=== PATIENT | male | born 1960 | race Caucasian/White ===

== ENCOUNTER 2017-06-30 14:01 | Inpatient (IN) ==
[2017-06-30 14:22] LABS: Basophils % 0.4 %; Eosinophils # 0.3 K/mcL (0.0-0.6); Eosinophils % 3.7 %; Hematocrit 38.2 % (37.5-50.1); Hemoglobin 12.4 g/dL (12.9-16.9); Immature Granulocytes % 0.4 % (0-4); Lymphocytes # 1.3 K/mcL (0.6-4.6); Lymphocytes % 18.4 %; Mean Corpuscular HGB Conc 32.5 g/dL (31.6-35.5); Mean Corpuscular Hemoglobin 26.8 pg (28.0-33.3); Mean Corpuscular Volume 82.5 fL (83.0-100.0); Mean Platelet Volume 10.5 fL (9.4-12.4); Monocytes # 0.4 K/mcL (0.0-1.3); Neutrophils # 5.1 K/mcL (1.6-8.9); Platelet Count 226 K/mcL (140-400); Red Blood Count 4.63 M/mcL (4.19-5.50); Red Cell Distribution Width 13.7 % (11.5-14.5); Segmented Neutrophils % 72.1 %
[2017-06-30 14:35] LABS: Calcium 7.8 mg/dL (8.6-10.3); Carbon Dioxide 28 mEq/L (23-29); Chloride 108 mEq/L (98-107); Potassium 3.7 mEq/L (3.5-5.1); Sodium 139 mEq/L (136-145)
[2017-06-30 14:41] LABS: BUN/Creatinine Ratio 9 (6-26); Blood Urea Nitrogen 12 mg/dL (6-20); Glucose 280 mg/dL (70-105); Osmolality,Calculated 298 (280-300); eGFR For African Americans > 60 (> 60); eGFR For Non-African Americans 59 (> 60)
[2017-06-30] MEDS ORDERED: Aspirin 81 MG TAB.CHEW PO ONE (15:19)
[2017-06-30] MEDS ORDERED: *HR* Enoxaparin 120 MG/0.8 ML SYRINGE SQ STA (15:19)
[2017-06-30] MEDS ORDERED: Furosemide 20 MG/2 ML VIAL IVP ONE ×2 (16:14→18:48)
--- NOTE | 2017-06-30 16:29 | Emergency Department Note ---
Addendum entered and electronically signed by Yuliana Roblero DO 16:47: EKG Sinus rhythm with occasional PVCs and nonspecific T-wave abnormality. [address] interval 128, QRS 93, QTc 442. This ends acute ST segment elevation or ischemia. Compared to previous EKG completed on 08/04/2016 no significant changes noted Original Note: Disposition Clinical Impression: Elevated troponin CHF (congestive heart failure) Qualifiers: Heart failure type: diastolic Heart failure chronicity: acute on chronic Qualified Code(s): I50.33 - Acute on chronic diastolic (congestive) heart failure Disposition: Admitted As Inpatient Condition: Good Time of Disposition: 16:32 General Adult HPI - General Chief complaint: ED Shortness of Breath/Dyspnea Stated complaint: BORA,CHF Time Seen by Provider: 06/30/17 15:00 Source: patient Mode of arrival: ambulatory Limitations: no limitations Nursing Notes Reviewed: Yes Vital Signs Reviewed: Yes - History of Present Illness HPI Narrative: 56-year-old male with significant past medical history of hypertension and hyperglycemia presenting to the emergency department complaining of increased shortness of breath. Patient states the past 4 months has had increasing shortness of breath. He was given an albuterol inhaler by his primary care physician but has had no further workup. Patient states over the past month it has progressively been worse. He is dyspneic on exertion. Patient denies any fevers or recent illnesses. Denies any chest pain, abdominal pain, nausea or vomiting. Patient went to urgent care today and it was completed which showed mild pulmonary edema. He was sent here for further workup. Patient denies any history of CHF. Denies any cardiac history. Pain Scale: 0 - Related Data Home Medications Medication Instructions Recorded Confirmed Amlodipine Besylate 10 mg PO DAILY 01/23/17 06/30/17 Carvedilol [Coreg] 25 mg PO BID 01/23/17 06/30/17 Glimepiride [Amaryl] 2 mg PO 0800 01/23/17 06/30/17 Metformin HCl [Glucophage] 1,000 mg PO BID 01/23/17 06/30/17 Omeprazole [PriLOSEC] 20 mg PO DAILY 01/23/17 06/30/17 Simvastatin [Zocor] 40 mg PO HS 01/23/17 06/30/17 cloNIDine HCl [Clonidine HCl] 0.2 mg PO TID 01/23/17 06/30/17 Albuterol Sulfate [Ventolin Hfa] 2 puff IH Q4H PRN 06/30/17 06/30/17 Empagliflozin [Jardiance] 25 mg PO DAILY 06/30/17 06/30/17 Allergies Allergy/AdvReac Type Severity Reaction Status Date / Time No Known Allergies Allergy Verified 06/30/17 14:06 All systems ED: reviewed and negative except as stated. Constitutional: Denies: fever, chills Cardiovascular: Reports: dyspnea on exertion. Denies: chest pain, palpitations Respiratory: Reports: dyspnea. Denies: cough, wheezes, hemoptysis Gastrointestinal: Denies: abdominal pain, nausea, vomiting Integumentary: Denies: rash Neurological: Denies: weakness, numbness, paresthesias Past Medical History - Past Medical History Attestation: Yes The following information was validated with the patient. Medical history: Reports: diabetes, GERD, hyperlipidemia, hypertension, other Surgical history: Reports: orthopedic, other Psychiatric history: Reports: no psych history - Social History Smoking Status: Never smoker Smokeless Tobacco Status: No Alcohol use: Reports: none Drug use: Reports: none Physical Exam - General Limitations: no limitations General appearance: alert, in no apparent distress - Head Head exam: atraumatic, normocephalic, normal inspection - Eye Eye exam: Present: normal appearance. Absent: scleral icterus, conjunctival injection - ENT ENT exam: mucous membranes moist - Neck Neck exam: Present: normal inspection, full ROM. Absent: tenderness, meningismus - Chest Chest inspection: Present: normal inspection, symmetric chest wall rise. Absent : tenderness, rash - Respiratory Respiratory exam: Present: other (decreased breath sounds bilateral bases). Absent: respiratory distress, wheezes - Cardiovascular Cardiovascular exam: Present: regular rate, normal rhythm, normal heart sounds - Abdominal Exam Abdominal exam: Present: soft, Non-Tender. Absent: distention, guarding, rebound - Extremities Exam Extremities exam: Present: other (bilateral lower extremity swelling, 2+ pitting edema) - Neurological Exam Neurological exam: Present: alert, oriented X3 - Psychiatric Psychiatric exam: Present: normal affect, normal mood - Skin Skin exam: Present: warm, dry, intact Course Course Narrative: 56-year-old male presenting to the emergency department complaining of increased shortness of breath over the past month. Laboratory workup was completed in triage including CBC, BMP, BNP and troponin along with EKG and chest x-ray was completed in urgent care. Chest x-ray shows new nonspecific T- wave abnormalities. Troponin elevated at 0.04. BNP also elevated. We will provide the patient with Lasix, Lovenox and aspirin at this time. We will admit the patient for CHF exacerbation and elevated troponin. I spoke with the hospitalist on-call Dr. Narayan who agrees to accept the patient at this time. Patient is alert and oriented 3 in room 0 vital signs this time. He agrees with this plan. Vital Signs Temperature 97.8 F 06/30/17 14:03 Pulse Rate 72 06/30/17 14:03 Respiratory Rate 16 06/30/17 14:03 Blood Pressure 186/81 06/30/17 14:03 O2 Sat by Pulse Oximetry 96 06/30/17 14:03 Temperature 98.4 F 06/30/17 21:43 Pulse Rate 65 06/30/17 21:43 Respiratory Rate 16 06/30/17 21:43 Blood Pressure 208/114 06/30/17 21:43 O2 Sat by Pulse Oximetry 95 06/30/17 21:43 Oxygen Delivery Oxygen Delivery Room Air Medical Decision Making - Lab Data Result diagrams: 06/30/17 14:14 06/30/17 14:14 Lab Results 06/30/17 06/30/17 06/30/17 Range/Units 14:14 14:14 14:14 WBC 7.1 (4.3-11.1) K/mcL RBC 4.63 (4.19-5.50) M/mcL Hgb 12.4 L (12.9-16.9) g/dL Hct 38.2 (37.5-50.1) % MCV 82.5 L (83.0-100.0) fL MCH 26.8 L (28.0-33.3) pg MCHC 32.5 (31.6-35.5) g/dL RDW 13.7 (11.5-14.5) % Plt Count 226 (140-400) K/mcL MPV 10.5 (9.4-12.4) fL Immature Gran % 0.4 (0-4) % Seg Neutrophils % 72.1 % Lymphocytes % 18.4 % Monocytes % 5.0 % Eosinophils % 3.7 % Basophils % 0.4 % Neutrophils # 5.1 (1.6-8.9) K/mcL Lymphocytes # 1.3 (0.6-4.6) K/mcL Monocytes # 0.4 (0.0-1.3) K/mcL Eosinophils # 0.3 (0.0-0.6) K/mcL Basophils # 0.0 (0.0-0.2) K/mcL D-Dimer (0-500) ng/mLFEU Sodium 139 (136-145) mEq/L Potassium 3.7 (3.5-5.1) mEq/L Chloride 108 H (98-107) mEq/L Carbon Dioxide 28 (23-29) mEq/L BUN 12 (6-20) mg/dL Creatinine 1.27 (0.70-1.30) mg/dL Est GFR ( Amer) > 60 (> 60) Est GFR (Non-Af Amer) 59 L (> 60) BUN/Creatinine Ratio 9 (6-26) Glucose 280 H (70-105) mg/dL Calculated Osmolality 298 (280-300) Calcium 7.8 L (8.6-10.3) mg/dL Troponin I 0.04 H* (< 0.04) ng/mL B-Natriuretic Peptide (Less than 100) pg/mL 06/30/17 06/30/17 Range/Units 14:14 14:14 WBC (4.3-11.1) K/mcL RBC (4.19-5.50) M/mcL Hgb (12.9-16.9) g/dL Hct (37.5-50.1) % MCV (83.0-100.0) fL MCH (28.0-33.3) pg MCHC (31.6-35.5) g/dL RDW (11.5-14.5) % Plt Count (140-400) K/mcL MPV (9.4-12.4) fL Immature Gran % (0-4) % Seg Neutrophils % % Lymphocytes % % Monocytes % % Eosinophils % % Basophils % % Neutrophils # (1.6-8.9) K/mcL Lymphocytes # (0.6-4.6) K/mcL Monocytes # (0.0-1.3) K/mcL Eosinophils # (0.0-0.6) K/mcL Basophils # (0.0-0.2) K/mcL D-Dimer 1169 H (0-500) ng/mLFEU Sodium (136-145) mEq/L Potassium (3.5-5.1) mEq/L Chloride (98-107) mEq/L Carbon Dioxide (23-29) mEq/L BUN (6-20) mg/dL Creatinine (0.70-1.30) mg/dL Est GFR ( Amer) (> 60) Est GFR (Non-Af Amer) (> 60) BUN/Creatinine Ratio (6-26) Glucose (70-105) mg/dL Calculated Osmolality (280-300) Calcium (8.6-10.3) mg/dL Troponin I (< 0.04) ng/mL B-Natriuretic Peptide 247 H (Less than 100) pg/mL Attestation Statement - Attestation Attestation: I examined this patient and my medical decision-making was reviewed with the Resident Physician. I agree with the documented findings, disposition and treatment plan as described except to the extent set forth below. Findings consistent with possible heart failure. Patient refuses left heart catheter previously. We will provide one dose of low molecular weight heparin, admit, elevated cardiac biomarkers, possibly related to underlying heart failure. Critical care performed:35 Time is exclusive of separately billable procedures. Time includes: direct patient care, patient reassessment, coordination of patient care, interpretation of data (laboratory data, radiology data, and respiratory data), review of patient's medical records, medical consultation and documentation of patient care. Procedures included in critical care time:0 Procedures excluded from critical care time: 0
--- NOTE | 2017-06-30 21:01 | Internal Med History&Physical ---
<Ed Patterson P - Last Filed: 06/30/17 23:44> Date of Encounter: 06/30/17 Internal Medicine - H&P: HPI History of present illness: Mr. Borges is a 56 year old male Internal Medicine - H&P: Meds Amlodipine Besylate 10 mg PO DAILY 01/23/17 [History] Carvedilol [Coreg] 25 mg PO BID 01/23/17 [History] Glimepiride [Amaryl] 2 mg PO 0800 01/23/17 [History] Metformin HCl [Glucophage] 1,000 mg PO BID 01/23/17 [History] Omeprazole [PriLOSEC] 20 mg PO DAILY 01/23/17 [History] Simvastatin [Zocor] 40 mg PO HS 01/23/17 [History] cloNIDine HCl [Clonidine HCl] 0.2 mg PO TID 01/23/17 [History] Albuterol Sulfate [Ventolin Hfa] 2 puff IH Q4H PRN 06/30/17 [History] Empagliflozin [Jardiance] 25 mg PO DAILY 06/30/17 [History] 3 Allergy/AdvReac Type Severity Reaction Status Date / Time No Known Allergies Allergy Verified 06/30/17 14:06 All Systems PM: A 10-system review of systems was performed and is negative for pertinent findings except as documented above in the HPI. - Constitutional Vitals: Temp Pulse Resp BP Pulse Ox 98.4 F 65 16 208/114 95 06/30/17 21:43 06/30/17 21:43 06/30/17 21:43 06/30/17 21:43 06/30/17 21:43 Internal Med - H&P Results - Labs CBC & Chem 7: 06/30/17 14:14 06/30/17 14:14 Labs: Cardiac Enzymes 06/30/17 Range/Units 20:31 Troponin I 0.05 H* (< 0.04) ng/mL - Attending Attestation I examined this patient and my medical decision-making was reviewed with the Resident Physician. I agree with the documented findings, disposition and treatment plan as described except to the extent set forth below. I have personally examined this patient before midnight. I agree with the history and physical along with the physical findings and plan recommended by resident physician. This patient needs a medication reconsultation by morning team and possible cardiology evaluation. <Man Wong - Last Filed: 06/30/17 23:47> Date of Encounter: 06/30/17 Time of Encounter: 08:20 Assessment and Plan (1) CHF (congestive heart failure) Current visit: Yes Status: Acute ECHO 04/03 showed: "LVEF 60%. Normal LV chamber size and function. Moderate concentric left ventricular hypertrophy. Moderate left ventricular diastolic dysfunction. Normal right ventricular structure and function. Mild-moderate mitral stenosis suggested by Doppler. Mean gradient 6 mmHg (HR 68 bpm). No evidence of pulmonary hypertension. All wall segments showed normal motion." Stress test 04/03 showed: " Small sized mild intensity, reversible apical inferior perfusion defect, low risk positive stress test." likely acute on chronic diastolic CHF. Will check echo to evaluate for changes in EF and any new wall motion abnormalities. per out patient records appears for be on ARB, BB, statin no lipid profile on record will check to see if need to increase statin consider adding asa 81mg if not already on at home. Qualifiers: Heart failure type: diastolic Heart failure chronicity: acute on chronic Qualified Code(s): I50.33 - Acute on chronic diastolic (congestive) heart failure (2) Elevated troponin Current visit: Yes Status: Acute Trop 0.04 on admission Trop ordered at 20:30 still pending. Trop ordered timed at 2:30 Likely secondary to demand ischemia. Will recheck echo as above. Recommend talking to cardiology in the morning about need for LHC regardless of ECHO result. (3) Diabetes mellitus Current visit: Yes Status: Acute Patient on oral medications. Will start SSI, Acuchecks. no A1C in system in patient or out patient so will check in the morning. 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 Med Rec techniciation contacted to reconcile mdications as out patient and in patient lists differ. for now will start the BP medications that are on both lists. Will cover with PRN hydralazine until BP meds established. Qualifiers: Hypertension type: essential hypertension Qualified Code(s): I10 - Essential (primary) hypertension (5) HLD (hyperlipidemia) Current visit: Yes Status: Acute Patient on Lovastatin 20mg per [facility] records [facility] has Simvastatin 40mg. Patient does not know full med list, but does remember Lovastatin. Will follow out patient medication list for now until pharmacy can confirm patient's medication list. Consider increasing to high intensity statin based on further work up. Qualifiers: Hyperlipidemia type: unspecified Qualified Code(s): E78.5 - Hyperlipidemia , unspecified Internal Medicine - H&P: HPI Chief complaint: BORA Admitted From: Emergency Dept Plans for Post Hospital Care: Home History of present illness: Mr. Borges is a 56 year old male c PMHx of HTN, HLD, DM, GERD reports to the ED c/o worsening SOB and PONCE x 4 months worse over over the last month. Patient reports PONCE climbing stairs, Orhtopnea, and BLE swelling that goes down over night or with elevating legs. Patient denies Chest pain, productive cough, abdominal pain, N, V, D, Fever, Chills. Patient was seen at Urgent care where a CXR was performed that showed "There is cardiomegaly. The central pulmonary vessels are prominent. There are patchy bibasilar airspace opacities. There is blunting of the costophrenic angles." Patient's BNP was 247. Patient had outpatient ECHO and stress test in March of 2017. ECHO showed: "LVEF 60%. Normal LV chamber size and function. Moderate concentric left ventricular hypertrophy. Moderate left ventricular diastolic dysfunction. Normal right ventricular structure and function. Mild-moderate mitral stenosis suggested by Doppler. Mean gradient 6 mmHg (HR 68 bpm). No evidence of pulmonary hypertension. All wall segments showed normal motion." Stress test showed: " Small sized mild intensity, reversible apical inferior perfusion defect, low risk positive stress test." Per [facility] records Cardiology recommended LHC at that time to further evaluate however patient declined at that time because he was asymptomatic. They opted for medical management. Past Med Surg Social Fam HX - Past Medical History Medical history: diabetes, GERD, hyperlipidemia, hypertension, other Psychiatric history: no psych history - Past Surgical History Surgical History: orthopedic, other - Social History Smoking Status: Never smoker Smokeless Tobacco Status: No Alcohol use: none Drug use: none - Family History Mother Living Status: Age at : 50 Cause of : growth on heart and lungs Father Living Status: Age at : 55 Cause of : unknown All Systems PM: A 10-system review of systems was performed and is negative for pertinent findings except as documented above in the HPI. - Constitutional Vitals: Temp Pulse Resp BP Pulse Ox 98 F 51 19 203/97 98 06/30/17 17:55 06/30/17 17:55 06/30/17 17:55 06/30/17 17:55 06/30/17 20:16 General appearance: Present: A&O X 3, no acute distress, obese, answers questions appropriately - Head Head exam: Present: atraumatic, normocephalic - Eye Eye exam: Present: PERRL, conjuntiva pink, sclera anicteric Pupils: Present: PERRL - Neck Neck exam general surgery: Present: supple, trachea midline. Absent: lymphadenopathy - Respiratory Respiratory exam: Present: decreased breath sounds (b/l bases), CTAB. Absent: accessory muscle use, rales, rhonchi, wheezes - Cardiovascular Cardiovascular exam: Present: RRR, +S1, +S2. Absent: diastolic murmur, gallop, rubs, systolic murmur - GI/Abdominal GI/Abdominal exam: Present: normal bowel sounds, soft, no peritoneal signs. Absent: distended, tenderness - Extremities Exam Extremities exam: Present: pedal edema (BLE pitting edeam), warm, radial pulses palpable and symmetrical. Absent: calf tenderness, cyanotic - Neurological Exam Neurological exam: Present: alert, CN II-XII intact, oriented X3, no focal deficits, strengths equal and symetr throughout. Absent: motor sensory deficit , pronater drift, facial droop, speech deficit - Skin Skin exam: Present: dry, intact Internal Med - H&P Results - Labs CBC & Chem 7: 06/30/17 14:14 06/30/17 14:14
[2017-06-30] MEDS ORDERED: Dextrose Gel 15 GM/37.5 ML TUBE PO PRN ×2 (22:06)
[2017-06-30] MEDS ORDERED: D5% in Water 1,000 ML IVC PRN (22:06)
[2017-06-30] MEDS ORDERED: *HR* Dextrose 50 % in Water (Syg) 50 ML SYRINGE IVP PRN (22:06)
[2017-06-30] MEDS: amLODIPine 5 MG TABLET PO SCH (22:07)
[2017-07-01 03:37] LABS: Basophils % 0.5 %; Eosinophils # 0.3 K/mcL (0.0-0.6); Eosinophils % 3.4 %; Hematocrit 37.8 % (37.5-50.1); Hemoglobin 12.3 g/dL (12.9-16.9); Immature Granulocytes % 0.3 % (0-4); Lymphocytes # 1.8 K/mcL (0.6-4.6); Lymphocytes % 23.6 %; Mean Corpuscular HGB Conc 32.5 g/dL (31.6-35.5); Mean Corpuscular Hemoglobin 26.4 pg (28.0-33.3); Mean Corpuscular Volume 81.1 fL (83.0-100.0); Mean Platelet Volume 10.6 fL (9.4-12.4); Monocytes # 0.5 K/mcL (0.0-1.3); Monocytes % 6.1 %; Platelet Count 240 K/mcL (140-400); Red Blood Count 4.66 M/mcL (4.19-5.50); Red Cell Distribution Width 13.9 % (11.5-14.5); Segmented Neutrophils % 66.1 %
[2017-07-01 03:44] LABS: Hemoglobin A1C 8.8 %
[2017-07-01 04:03] LABS: BUN/Creatinine Ratio 10 (6-26); Blood Urea Nitrogen 14 mg/dL (6-20); Carbon Dioxide 28 mEq/L (23-29); Chloride 109 mEq/L (98-107); Glucose 157 mg/dL (70-105); Osmolality,Calculated 300 (280-300); Potassium 3.3 mEq/L (3.5-5.1); Sodium 143 mEq/L (136-145); eGFR For African Americans > 60 (> 60); eGFR For Non-African Americans 56 (> 60)
[2017-07-01] MEDS: Insulin LISPRO 300 UNITS/3 ML VIAL SQ SCH ×3 (08:32→16:51)
[2017-07-01] MEDS: amLODIPine 5 MG TABLET PO SCH (08:32)
--- NOTE | 2017-07-01 09:18 | Electrocardiograph Report ---
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
[2017-07-01] MEDS ORDERED: cloNIDine HCl 0.1 MG TABLET PO ONE (10:08)
[2017-07-01] MEDS ORDERED: NON-FORMULARY MEDICATION 1 EACH EACH (Clonidine Hcl [Clonidine Hcl] 0.2 MG) PO SCH (10:15)
[2017-07-01] MEDS ORDERED: *HR* Enoxaparin 120 MG/0.8 ML SYRINGE SQ ONE (10:33)
--- NOTE | 2017-07-01 10:48 | Internal Med Progress Note ---
Date of Encounter: 07/01/17 Time of Encounter: 10:42 - Assessment and plan (1) Dyspnea on exertion Current Visit: Yes Status: Acute Assessment and plan: Appears to be multifactorial-of acute or chronic diastolic heart failure He also has a high D Dimer and will check a VQ Scan and LE Duplex gay given assymetric LE edema I will give him one dose 1mg /kg lovenox and obtain these studies in the meantime. Also has HTN urgency Echo pending last ECHO /Stress in 03/2017 hinted at some inferior ischemia in heart- spoke to cardiology - they will see him today He is now agreeable to undergo cath if needed- he wasnt in 2017 (2) CHF (congestive heart failure) Current Visit: Yes Status: Suspected Assessment and plan: Acute on chronic Diastolic CHF given lasix initially bt will hold now given cr elevation await Cardiology consultation monitor daily weights Qualifiers: Heart failure type: diastolic Heart failure chronicity: acute on chronic Qualified Code(s): I50.33 - Acute on chronic diastolic (congestive) heart failure (3) Diabetes mellitus Current Visit: Yes Status: Acute Assessment and plan: A1C 8.8 maintain SSI for now needs better diabetic control outpatient Diabetic education Qualifiers: Diabetes mellitus type: type 2 Diabetes mellitus complication status: without complication Diabetes mellitus intermediate insulin use: without intermediate use Qualified Code(s): E11.9 - Type 2 diabetes mellitus without complications (4) Elevated troponin Current Visit: Yes Status: Acute Assessment and plan: probably demand ischemia already trending down cardiology consult awaited (5) HLD (hyperlipidemia) Current Visit: Yes Status: Acute Assessment and plan: Last FLP showed LDL>250 increased statin dose today educated re dietary compliance will repeat in AM to see if this is not an error Qualifiers: Hyperlipidemia type: unspecified Qualified Code(s): E78.5 - Hyperlipidemia , unspecified (6) HTN (hypertension) Current Visit: Yes Status: Acute Assessment and plan: HTN urgency in ED SBP still > 180 he just got AM meds and repeat measurement is pending will add one time clonidine 0.1 - HR prohibitive to add it more along w BB PRN hydralazine Qualifiers: Hypertension type: essential hypertension Qualified Code(s): I10 - Essential (primary) hypertension - Time Spent With Patient Greater than 35 minutes - Subjective Interval history: Pt states his SOB is better today . He did state that most of his symptoms prior to coming to the hospital were exertional in nature - Constitutional Vitals: Temp Pulse Resp BP Pulse Ox 97.9 F 61 16 192/97 95 07/01/17 07:14 07/01/17 07:14 07/01/17 07:14 07/01/17 07:14 07/01/17 07:14 General appearance: Present: A&O X 3, no acute distress, obese, answers questions appropriately Exam: General , Alert , oriented, moderate distress HEENT- PERRLA. EOMI CVS- S1S2 N, No Murmurs, Rubs, gallops, No JVD appreciated RS- CTA Bilaterally. No rales no Rhonchi heard Abdomen- Soft NT ND, bowel sounds heard across all 4 quadrants Neuro- No Focal deficits appreciated, CN 2-12 intact, Motors- power 5/5 UE, 5/5 LE Bilaterally, Sensations intact Extremeties- R>L LE Edema atleast 2 + Internal Medicine: Result - Labs CBC & Chem 7: 07/01/17 03:06 07/01/17 03:06 Labs: Short CBC 07/01/17 Range/Units 03:06 WBC 7.6 (4.3-11.1) K/mcL Hgb 12.3 L (12.9-16.9) g/dL Hct 37.8 (37.5-50.1) % Plt Count 240 (140-400) K/mcL Neutrophils # 5.0 (1.6-8.9) K/mcL BMP 07/01/17 03:06 Sodium 143 Potassium 3.3 L Chloride 109 H Carbon Dioxide 28 BUN 14 Creatinine 1.34 H Glucose 157 H Calcium 8.0 L Cardiac Enzymes 07/01/17 Range/Units 03:06 Troponin I 0.04 H* (< 0.04) ng/mL - ABG Interpretation ABG results: PT/INR, D-dimer D-Dimer 1169 ng/mLFEU (0-500) H 06/30/17 14:14 Consult Discharge Plan - Plan Referrals: Yousuf Harrison MD [Primary Care Provider] -
--- NOTE | 2017-07-01 15:33 | Cardiology Consult Note ---
<Uche Posadas - Last Filed: 07/01/17 17:12> Date of Encounter: 07/01/17 Time of Encounter: 15:30 Assessment and Plan (1) Elevated troponin Current Visit: Yes Status: Acute Mild troponin elvation, 0.04, 0.05, 0.04 in the setting of CHF and HTN. Likely demand ischemia. (2) Abnormal stress test Current Visit: Yes Status: Acute He does have history of abnormal stress test 03/2017 that showed possible mild ischemia in the apical inferior wall. Low risk study. Initially medical management recommended. Due to continued dyspnea and elevated blood pressures he would like to proceed with LHC. C/o increasing dyspnea. Cardiac risk factors include HTN, HLD, DM type II, and obesity. LHC, R/B/A discussed. We will proceed once blood pressure improves. Noted that Scr mildly elevated today. Will re-check in am prior to ordering LHC. (3) CHF (congestive heart failure) Current Visit: Yes Status: Suspected Acute on chronic diastolic CHF. TTE 03/2017 showed EF 60%. moderate diastolic dysfunction. Mild to moderate MS. CXR shows mild CHF. BNP 247. Agree with IV lasix. Repeat today. Continues to have orthopnea and BLE edema. CHF education. Strict I&O and low sodium diet. Monitor renal function. Qualifiers: Heart failure type: diastolic Heart failure chronicity: acute on chronic Qualified Code(s): I50.33 - Acute on chronic diastolic (congestive) heart failure (4) HTN (hypertension) Current Visit: Yes Status: Acute Uncontrolled HTN . B/p in the 200/100 range. Continue norvasc and carvedilol. Clonidine held due to home med list descrepency. Patient confirms he is taking clonidine. Restart at home dose. IV hydralizine ordered PRN. Recommend being careful to lower b/p slowly. Instructed nursing staff to wait 30 min after his hydralizine IV dose that was just given to re-evaluate b/p before giving his oral clonidine. Qualifiers: Hypertension type: essential hypertension Qualified Code(s): I10 - Essential (primary) hypertension Discussion w patient/family: The assessment and plan as outlined above was discussed with the patient and/or family members who expressed understanding and agreement. All questions were answered. Thank you for involving us in the care of your patient. Please call with any questions. History of Present Illness Consult date: 07/01/17 Requesting physician: Tasneem Saini Consult reason: abnormal stress, DCHF Chief complaint: Dyspnea for 4 months, BLE edema, orthopnea History of present illness: Mr. Borges is a 56 year old male with a past medical history of uncontrolled hypertension, HLD, and DM type II who presents with increasing dyspnea on exertion, orthopnea, and BLE edema. Cardiology consulted due to patient having abnormal stress test in March 2017. Patient opted for medical management at that time. He would now like to consider [facility]. He denies chest pain. His stress test was ordered due to elevated blood pressure and SOB. He reports being very active at home and work. Since winter started he noticed dyspnea while doing his job. He was initially treated for "winter" asthma and given inhalers. His dyspnea did not improve with inhalers. Past Med Surg Social Fam HX - Past Medical History Attestation: Yes The following information was validated with the patient. Medical history: diabetes, GERD, hyperlipidemia, hypertension, other Psychiatric history: no psych history - Past Surgical History Surgical History: orthopedic, other - Social History Smoking Status: Never smoker Smokeless Tobacco Status: No Alcohol use: none Drug use: none - Family History Mother Living Status: Age at : 50 Cause of : growth on heart and lungs Father Living Status: Age at : 55 Cause of : unknown Medications and Allergies Amlodipine Besylate 10 mg PO DAILY 01/23/17 [History] Carvedilol [Coreg] 25 mg PO BID 01/23/17 [History] Glimepiride [Amaryl] 2 mg PO 0800 01/23/17 [History] Metformin HCl [Glucophage] 1,000 mg PO BID 01/23/17 [History] Omeprazole [PriLOSEC] 20 mg PO DAILY 01/23/17 [History] Simvastatin [Zocor] 40 mg PO HS 01/23/17 [History] cloNIDine HCl [Clonidine HCl] 0.2 mg PO TID 01/23/17 [History] Albuterol Sulfate [Ventolin Hfa] 2 puff IH Q4H PRN 06/30/17 [History] Empagliflozin [Jardiance] 25 mg PO DAILY 06/30/17 [History] 3 Allergy/AdvReac Type Severity Reaction Status Date / Time No Known Allergies Allergy Verified 06/30/17 14:06 All Systems Review: A 10-system review of systems was performed and is negative for pertinent findings except as documented above in the HPI. Physical Examination Vital Signs Temp Pulse Resp BP Pulse Ox 07/01/17 16:13 98 F 60 16 183/96 98 07/01/17 11:17 98 F 63 16 179/90 94 07/01/17 07:14 97.9 F 61 16 192/97 95 07/01/17 04:55 73 15 186/95 96 06/30/17 23:55 67 17 185/93 96 06/30/17 21:43 98.4 F 65 16 208/114 95 06/30/17 20:16 98 06/30/17 17:55 98 F 51 19 203/97 95 Intake and Output 07/01/17 07/01/17 07/01/17 07:59 15:59 23:59 Output Total 200 / 200 400 / 400 Balance -200 / -200 -400 / -400 Output: Urine 200 / 200 400 / 400 Other: # Voids 1 Blood Glucose* 136 264 220 General: Conversant, No Apparent Distress HEENT: Atraumatic, Normocephaly, Mucus Membranes Moist Neck: No JVD, Normal carotid pulses Cardiac: Reg Rate and Rhythm, Normal S1 and S2, No Murmur Lungs: Other (faint rales in bases. ) Neuro: Alert and responsive, No focal deficits noted Abdomen: Soft, Non-Tender Skin: No rashes noted on visualized skin Musculoskeletal: No Chest Wall Tenderness Extremities: No Clubbing, No Cyanosis, Normal Pulses, Other (1+ BLE edema up to mid curry.) Results 07/01/17 03:06 07/01/17 03:06 Lab Results 07/01/17 07/01/17 07/01/17 03:06 03:06 03:06 WBC 7.6 Hgb 12.3 L Hct 37.8 Plt Count 240 Sodium 143 Potassium 3.3 L Chloride 109 H Carbon Dioxide 28 BUN 14 Creatinine 1.34 H Glucose 157 H Calcium 8.0 L Magnesium Troponin I 0.04 H* 07/01/17 03:06 WBC Hgb Hct Plt Count Sodium Potassium Chloride Carbon Dioxide BUN Creatinine Glucose Calcium Magnesium 1.7 Troponin I - Imaging and Cardiology Stress Test: report reviewed Echo: report reviewed - EKG Interpretation EKG results cardiology: personally reviewed Consult Discharge Plan - Plan Referrals: Yousuf Harrison MD [Primary Care Provider] - <Alvina Coffey - Last Filed: 07/01/17 17:59> Date of Encounter: 07/01/17 - Attending Attestation I examined this patient and my medical decision-making was reviewed with the PROCESS SUPERVISOR. I agree with the documented findings, disposition and treatment plan as described. Mr. Borges presents with a chief complaint of worsening dyspnea. Risk factors for CAD includes uncontrolled DM, uncontrolled HPL, uncontrolled HTN. He previously had an abnormal stress test in March 2017 and declined LHC. Troponins this visit are mildly elevated, flat probably representing demand ischemia in setting of elevated BP and acute diastolic CHF. We discussed consideration for proceeding with LHC given ongoing symptoms and risk factors for CAD. The R/B/A of the procedure were discussed with the patient. Family was at bedside. The patient verbalized understanding. He would like to proceed with LHC and expressed understanding of the risks of the procedure. Continue asa, statin, BB. Blood pressure challenging to control - possibly some noncompliance. Will add imdur to regimen. Assessment and Plan Discussion w patient/family: The assessment and plan as outlined above was discussed with the patient and/or family members who expressed understanding and agreement. All questions were answered. Thank you for involving us in the care of your patient. Please call with any questions. History of Present Illness History of present illness: Mr. Borges is a 56 year old male All Systems Review: A 10-system review of systems was performed and is negative for pertinent findings except as documented above in the HPI. Physical Examination Vital Signs, Last 4 Hours Temp Pulse Resp BP Pulse Ox 07/01/17 17:49 170/88 07/01/17 16:13 98 F 60 16 183/96 98 Results 07/01/17 03:06 07/01/17 03:06 Lab Results 07/01/17 07/01/17 07/01/17 03:06 03:06 03:06 WBC 7.6 Hgb 12.3 L Hct 37.8 Plt Count 240 Sodium 143 Potassium 3.3 L Chloride 109 H Carbon Dioxide 28 BUN 14 Creatinine 1.34 H Glucose 157 H Calcium 8.0 L Magnesium Troponin I 0.04 H* 07/01/17 03:06 WBC Hgb Hct Plt Count Sodium Potassium Chloride Carbon Dioxide BUN Creatinine Glucose Calcium Magnesium 1.7 Troponin I
[2017-07-01] MEDS ORDERED: Furosemide 20 MG/2 ML VIAL IVP ONE (17:19)
[2017-07-01] MEDS: Isosorbide MONOnitrate (24 HR) 30 MG TAB.ER.24H PO SCH (20:12)
[2017-07-01] MEDS: cloNIDine HCl 0.1 MG TABLET PO SCH (20:12)
[2017-07-01] MEDS: *HR* Enoxaparin 120 MG/0.8 ML SYRINGE SQ SCH (23:16)
[2017-07-02 04:11] LABS: Basophils % 0.3 %; Eosinophils # 0.2 K/mcL (0.0-0.6); Eosinophils % 3.4 %; Hematocrit 34.8 % (37.5-50.1); Immature Granulocytes % 0.4 % (0-4); Lymphocytes # 1.5 K/mcL (0.6-4.6); Lymphocytes % 21.2 %; Mean Corpuscular HGB Conc 31.6 g/dL (31.6-35.5); Mean Corpuscular Hemoglobin 26.2 pg (28.0-33.3); Mean Corpuscular Volume 82.9 fL (83.0-100.0); Mean Platelet Volume 10.8 fL (9.4-12.4); Monocytes # 0.4 K/mcL (0.0-1.3); Monocytes % 5.8 %; Neutrophils # 4.9 K/mcL (1.6-8.9); Nucleated Red Blood Cells 0.3 /100 WBC (0); Platelet Count 226 K/mcL (140-400); Segmented Neutrophils % 68.9 %
[2017-07-02 04:38] LABS: BUN/Creatinine Ratio 10 (6-26); Blood Urea Nitrogen 15 mg/dL (6-20); Calcium 7.9 mg/dL (8.6-10.3); Carbon Dioxide 28 mEq/L (23-29); Chloride 111 mEq/L (98-107); Glucose 179 mg/dL (70-105); Osmolality,Calculated 301 (280-300); Potassium 3.6 mEq/L (3.5-5.1); Sodium 143 mEq/L (136-145); eGFR For African Americans > 60 (> 60); eGFR For Non-African Americans 50 (> 60)
[2017-07-02 04:41] LABS: Chol/HDL Ratio 11.1 (0-4.9)
[2017-07-02] MEDS: Insulin LISPRO 300 UNITS/3 ML VIAL SQ SCH ×3 (08:05→15:46)
[2017-07-02] MEDS: Aspirin 325 MG TABLET PO SCH (08:06)
[2017-07-02] MEDS: amLODIPine 5 MG TABLET PO SCH (08:07)
[2017-07-02] MEDS: cloNIDine HCl 0.1 MG TABLET PO SCH ×4 (08:07→20:00)
[2017-07-02] MEDS: Isosorbide MONOnitrate (24 HR) 30 MG TAB.ER.24H PO SCH (08:07)
--- NOTE | 2017-07-02 08:49 | Internal Med Progress Note ---
Date of Encounter: 07/02/17 Time of Encounter: 08:47 - Assessment and plan (1) Acute renal failure Current Visit: Yes Status: Acute Assessment and plan: Continue to hold nephrotoxins. The patient was on Lasix and this has been on hold. Creatinine continues to rise. We will check a renal ultrasound. If cardiology is considering a left heart catheterization, nephrology will need to be consulted. Qualifiers: Acute renal failure type: unspecified Qualified Code(s): N17.9 - Acute kidney failure, unspecified (2) Acute exacerbation of CHF (congestive heart failure) Current Visit: Yes Status: Acute Assessment and plan: Likely an exacerbation of diastolic heart failure. Currently seems euvolemic. He is on room air. Although her anymore diuresis given elevated creatinine. Continue with beta pallavi. Patient is also on aspirin. Needs better blood pressure control. Qualifiers: Heart failure type: diastolic Qualified Code(s): I50.33 - Acute on chronic diastolic (congestive) heart failure (3) Abnormal stress test Current Visit: Yes Status: Acute Assessment and plan: Cardiology is aware. They are talking about possibly left heart catheterization. If that is the case nephrology would need to be consulted given elevated creatinine. (4) Diabetes mellitus Current Visit: Yes Status: Acute Assessment and plan: A1C 8.8 . Continue insulin sliding scale. Continue Accu-Cheks. Qualifiers: Diabetes mellitus type: type 2 Diabetes mellitus complication status: without complication Diabetes mellitus exterminator insulin use: without retirement use Qualified Code(s): E11.9 - Type 2 diabetes mellitus without complications (5) Elevated troponin Current Visit: Yes Status: Acute Assessment and plan: probably demand ischemia already trending down cardiology following (6) HTN (hypertension) Current Visit: Yes Status: Acute Assessment and plan: The patient's blood pressure continues to be elevated. Continue with Norvasc 10 mg daily, increase clonidine to 0.3 mg 3 times a day. The patient is also on Coreg 25 mg twice a day however his heart rate is on the lower side and there is no room to increase that. He is also on Imdur. Hydralazine IV when necessary. Qualifiers: Hypertension type: essential hypertension Qualified Code(s): I10 - Essential (primary) hypertension (7) DVT (deep venous thrombosis) Current Visit: Yes Status: Acute Assessment and plan: Awaiting official report. Preliminary report was acute findings. Patient is on Lovenox 120 mg subcutaneous twice a day. Qualifiers: DVT location: lower extremity Affected thrombotic vein of extremity: unspecified vein of extremity Chronicity: unspecified Laterality: unspecified laterality Qualified Code(s): I82.409 - Acute embolism and thrombosis of unspecified deep veins of unspecified lower extremity (8) DVT prophylaxis Current Visit: Yes Status: Acute Assessment and plan: On therapeutic Lovenox. (9) HLD (hyperlipidemia) Current Visit: Yes Status: Acute Assessment and plan: Statin has been increased to maximum dose of 80 mg of atorvastatin. Patient's LDL is noted to be 216. Qualifiers: Hyperlipidemia type: unspecified Qualified Code(s): E78.5 - Hyperlipidemia , unspecified - Subjective Interval history: Patient was seen and examined. No acute events. Has been afebrile. The patient's blood pressure is consistently elevated. He was admitted initially with an acute exacerbation of diastolic heart failure. Currently on room air. He started to have lower extremity DVT based on preliminary reports. Patient has had an abnormal stress test back in March 2017 for which she refused left heart catheterization. Cardiology is following now. Stay is complicated by an elevation in creatinine. - Constitutional Vitals: Temp Pulse Resp BP Pulse Ox 97.9 F 59 15 179/86 98 07/02/17 07:10 07/02/17 07:10 07/02/17 07:10 07/02/17 07:10 07/02/17 07:10 General appearance: Present: A&O X 3, no acute distress, obese, answers questions appropriately Exam: GEN: NAD CVS: RRR. S1, S2, No m/r/g RESP: CTAB ABD: Soft, NT, ND, +BS EXT: 1+ edema. 2+ DP. No rashes NEURO: Nonfocal Internal Medicine: Result - Labs CBC & Chem 7: 07/02/17 03:58 07/02/17 03:58 Labs: Short CBC 07/02/17 Range/Units 03:58 WBC 7.1 (4.3-11.1) K/mcL Hgb 11.0 L (12.9-16.9) g/dL Hct 34.8 L (37.5-50.1) % Plt Count 226 (140-400) K/mcL Neutrophils # 4.9 (1.6-8.9) K/mcL BMP 07/02/17 03:58 Sodium 143 Potassium 3.6 Chloride 111 H Carbon Dioxide 28 BUN 15 Creatinine 1.46 H Glucose 179 H Calcium 7.9 L - ABG Interpretation ABG results: PT/INR, D-dimer D-Dimer 1169 ng/mLFEU (0-500) H 06/30/17 14:14 - Impressions Impressions Echocardiogram 07/01/17 07:00 Impressions: LVEF 60%. Normal LV chamber size and function. Moderate concentric left ventricular hypertrophy. Moderate left ventricular diastolic dysfunction. Normal right ventricular structure and function. Mildly thickened mitral valve leaflets. Mild mitral stenosis. Mean gradient 4 mmHg. Moderate pulmonary hypertension. Estimated RVSP is 49 mmHg. Left Ventricular Wall Motion: Rest Echo Findings All wall segments showed normal motion. Findings: Study Quality * Technically adequate exam. ECG Findings * Normal sinus rhythm. Left Ventricle * LVEF 60%. * Normal LV chamber size and function. * Moderate concentric left ventricular hypertrophy. * Moderate left ventricular diastolic dysfunction. Right Ventricle * Normal right ventricular structure and function. Left Atrium * Moderate to severely dilated left atrium. Right Atrium * Mildly dilated right atrium. Interatrial Septum * Interatrial septum not well evaluated. Aortic Valve * Trileaflet aortic valve. * Mildly sclerotic aortic valve leaflets. * No aortic regurgitation. * No aortic stenosis. Mitral Valve * Mildly thickened mitral valve leaflets. * Trace mitral regurgitation. * Mild mitral stenosis. Mean gradient 4 mmHg. Tricuspid Valve * Normal tricuspid valve structure and function. * Trace tricuspid regurgitation. * Moderate pulmonary hypertension. * Estimated RVSP is 49 mmHg. * Estimated RA pressure is 5 mmHg. Pulmonic Valve * Normal pulmonic valve structure and function. * No pulmonic regurgitation. Aorta * Normally sized aortic root. Pericardium * The pericardium appears normal. IVC * Normal IVC dimensions and inspiratory collapse. Pulmonary Artery * Normal visualized portions of the main pulmonary artery. Pulmonary Perfusion Imaging 07/01/17 09:49 IMPRESSION: Low Probability for Pulmonary Embolus. D/ / Panchito Espitia MD / Panchito Espitia MD Interpreting Provider: Panchito Espitia MD Consult Discharge Plan - Plan Referrals: Yousuf Harrison MD [Primary Care Provider] -
[2017-07-02] MEDS: *HR* Enoxaparin 120 MG/0.8 ML SYRINGE SQ SCH ×2 (11:42→23:21)
--- NOTE | 2017-07-02 16:00 | Cardiology Progress Note ---
Date of Encounter: 07/02/17 Time of Encounter: 15:57 Assessment and Plan (1) Diastolic heart failure Current Visit: Yes Status: Acute Patient treated for acutely decompensated diastolic heart fire. Symptoms much improved. CHF education provided. Blood pressure control is essential. Qualifiers: Heart failure chronicity: acute on chronic Qualified Code(s): I50.33 - Acute on chronic diastolic (congestive) heart failure (2) HTN (hypertension) Current Visit: Yes Status: Acute Poorly controlled hypertension. Significant left ventricular hypertrophy noted. Agree with amlodipine 10 mg daily, Coreg 25 mg twice daily. Clonidine increased per reports. Continue to monitor BP. If necessary, add lisinopril for addition BP control. Low sodium diet emphasized. Daily exercise encouraged. Qualifiers: Hypertension type: essential hypertension Qualified Code(s): I10 - Essential (primary) hypertension (3) Abnormal stress test Current Visit: Yes Status: Acute He does have history of abnormal stress test 03/2017 that showed possible mild ischemia in the apical inferior wall. Low risk study. Initially medical management recommended. Due to continued dyspnea and elevated blood pressures he would like to proceed with LHC. C/o increasing dyspnea. Cardiac risk factors include HTN, HLD, DM type II, and obesity. LHC, R/B/A discussed. We will proceed once blood pressure improves. Plan for possible LHC in AM. (4) DVT (deep venous thrombosis) Current Visit: Yes Status: Acute Qualifiers: DVT location: lower extremity Affected thrombotic vein of extremity: unspecified vein of extremity Chronicity: unspecified Laterality: unspecified laterality Qualified Code(s): I82.409 - Acute embolism and thrombosis of unspecified deep veins of unspecified lower extremity Discussion w patient/family: The assessment and plan as outlined above was discussed with the patient and/or family members who expressed understanding and agreement. All questions were answered. Thank you for involving us in the care of your patient. Please call with any questions. Subjective Principal diagnosis: HTN, Tn elevation Interval history: Patient seen and examined earlier today. Blood pressure remained significantly elevated. Prior stress test performed 03/2017 demonstrated a small area of possible ischemia in the apical inferior segment. Patient seen by cardiology yesterday, decided to proceed with LHC. Blood pressure remained markedly elevated today. After discussion, decision made to hold on cardiac catheterization for now until blood pressure better controlled. Reports dyspnea has improved. Objective Vital Signs, Last 4 Hours Temp Pulse Resp BP Pulse Ox 07/02/17 15:46 97.7 F 56 15 168/81 93 General: Conversant, No Apparent Distress HEENT: Atraumatic, Normocephaly, Mucus Membranes Moist Neck: No JVD Cardiac: Reg Rate and Rhythm, Normal S1 and S2, Other (Distant, no obvious murmurs.) Lungs: Normal Breath Sounds, No Wheeze, Rales, Rhonchi Neuro: Alert and responsive, No focal deficits noted Abdomen: Soft, Non-Tender, Other (Obese) Skin: No rashes noted on visualized skin Musculoskeletal: No Chest Wall Tenderness Extremities: No Clubbing, No Cyanosis, No Edema Results 07/02/17 03:58 07/02/17 03:58 Lab Results 07/02/17 07/02/17 03:58 03:58 WBC 7.1 Hgb 11.0 L Hct 34.8 L Plt Count 226 Sodium 143 Potassium 3.6 Chloride 111 H Carbon Dioxide 28 BUN 15 Creatinine 1.46 H Glucose 179 H Calcium 7.9 L - Imaging and Cardiology Stress Test: report reviewed Echo: report reviewed Consult Discharge Plan - Plan Referrals: Yousuf Harrison MD [Primary Care Provider] -
[2017-07-03 06:05] LABS: Basophils % 0.6 %; Eosinophils # 0.2 K/mcL (0.0-0.6); Eosinophils % 2.9 %; Hematocrit 34.8 % (37.5-50.1); Hemoglobin 11.2 g/dL (12.9-16.9); Immature Granulocytes % 0.3 % (0-4); Lymphocytes # 1.5 K/mcL (0.6-4.6); Lymphocytes % 21.1 %; Mean Corpuscular HGB Conc 32.2 g/dL (31.6-35.5); Mean Corpuscular Hemoglobin 26.7 pg (28.0-33.3); Mean Corpuscular Volume 82.9 fL (83.0-100.0); Mean Platelet Volume 10.8 fL (9.4-12.4); Monocytes # 0.3 K/mcL (0.0-1.3); Monocytes % 4.9 %; Neutrophils # 4.9 K/mcL (1.6-8.9); Platelet Count 220 K/mcL (140-400); Red Cell Distribution Width 14.1 % (11.5-14.5); Segmented Neutrophils % 70.2 %
[2017-07-03 06:24] LABS: BUN/Creatinine Ratio 12 (6-26); Blood Urea Nitrogen 16 mg/dL (6-20); Calcium 7.9 mg/dL (8.6-10.3); Carbon Dioxide 25 mEq/L (23-29); Chloride 111 mEq/L (98-107); Glucose 203 mg/dL (70-105); Osmolality,Calculated 301 (280-300); Potassium 3.5 mEq/L (3.5-5.1); Sodium 142 mEq/L (136-145); eGFR For African Americans > 60 (> 60); eGFR For Non-African Americans 56 (> 60)
[2017-07-03] MEDS: Insulin LISPRO 300 UNITS/3 ML VIAL SQ SCH ×3 (07:17→17:08)
[2017-07-03] MEDS: Aspirin 325 MG TABLET PO SCH (07:37)
[2017-07-03] MEDS: Isosorbide MONOnitrate (24 HR) 30 MG TAB.ER.24H PO SCH (07:37)
[2017-07-03] MEDS: amLODIPine 5 MG TABLET PO SCH (07:37)
[2017-07-03] MEDS: cloNIDine HCl 0.1 MG TABLET PO SCH ×3 (07:38→22:08)
[2017-07-03] MEDS ORDERED: 0.9 % Sodium Chloride 1,000 ML ONE ×2 (08:45→09:39)
[2017-07-03] MEDS ORDERED: Nitroglycerin 1,000 MCG/10 ML VIAL IV ONE (08:45)
[2017-07-03] MEDS ORDERED: Heparin 1,000 UNITS/500 mL 500 ML ONE (08:45)
[2017-07-03] MEDS ORDERED: *HR* Heparin 10,000 UNIT/10 ML VIAL ONE (08:45)
[2017-07-03] MEDS ORDERED: ISOVUE-370 200 ML INFUS..BTL IV ONE (08:55)
[2017-07-03] MEDS ORDERED: *HR* Midazolam HCl 2 MG/2 ML VIAL ONE (09:40)
--- NOTE | 2017-07-03 09:47 | Pre-Sedation Evaluation ---
Pre-sedation evaluation - Pre-sedation checklist Date of procedure: 07/03/17 Procedure: Heart Cath Recent Vitals: Last Vital Signs Temp 98.3 F 07/03/17 07:31 Pulse 64 07/03/17 07:31 Resp 20 07/03/17 07:31 BP 203/91 07/03/17 07:31 Pulse Ox 95 07/03/17 00:20 H&P (including ROS) documented in medical record: Yes Previous reaction to sedatives/anesthetics: No Dietary Status: NPO after Midnight Airway Assessment: Patient can open mouth completely, TMJ function normal Dentition: No loose teeth or bridges Possible difficult airway: No ASA Classification *see protocol: CLASS III-Severe systemic disease Plan of Care: Pt appropriate candidate for procedure/moderate/conscious sedation , Risks/benefits of procedure/sedation discussed w/ patient/family, If not NPO; Risk of intake outweiged by necessity to perform procedure
--- NOTE | 2017-07-03 10:37 | Invasive Diagnostic Lab Proc ---
Name: Madhav Borges Date of Study: 07/03/2017 Date: 1960 Ht: 70.9in Medical Record#: [id number] Age: 56 Wt: 249.12lb Gender: Male BSA: 2.31 Order #: [id number] BMI: 34.88 Physicians Procedure Physician: Rashi Horne DO Referring MD: Yousuf Harrison MD Referring MD: Staff Name Position Time In Austin Cruz RN Monitor 09:39 AM James Marisa RT (R) Scrub 09:41 AM Luis Felipe Downs RN Packaging Manager 09:41 AM Indications Indication Abnormal Test - Stress Procedures Performed Procedure L HRT ARTERY/VENTRICLE ANGIO Pre-Procedure Checklist Informed consent is complete signed and on chart. H&P is on chart. ID band is on and ID verified with patient. Patient NPO for procedure The procedure was described for the patient and questions were answered. Blood Pressure: 168/92 ECG is on chart. Rhythm: NSR Plan of Care Patient will tolerate the procedure without complications. Adequate level of comfort will be maintained. Hemodynamics will remain stable Patient will recover from procedure without complications. Respiratory function will be maintained. Cardiac rhythm will remain stable. Patient temperature will be maintained. Patient and/or family have verbalized understanding of the procedure. Patient Education Chief Complaint/Reason for Test: Cardiac Cath Developmental Category: Adult (18-64 years) Developmentally Appropriate for Age: Yes Learning Barriers: None Education Needs: Procedure Education Method: Verbal Information Taught: Cardiac Cath Educational Evaluation: Able to repeat information Intravenous Access Time IV Size Location DC'd Fluid/Drip Rate Units RN 09:45 AM 20g 1 /" Patent On Arrival Lt Arm 0.9NaCl 25 ml/hr Luis Felipe Downs RN Allergies NKDA Vital Signs Time BP (mmHg) HR (bpm) O2 Sat. RR (bpm) LOC 09:41 AM 168 / 92 65 94 % 20 5 = Fully awake and oriented or at pre-proc level 09:41 AM / % 4 = Oriented but drowsy 09:56 AM / % 4 = Oriented but drowsy 09:43 AM 168 / 92 84 94 % 5 09:48 AM 145 / 74 50 94 % 29 09:53 AM 141 / 69 50 94 % 25 09:59 AM 141 / 70 50 94 % 10:04 AM 134 / 72 51 94 % 10:08 AM 136 / 72 67 95 % 33 10:13 AM 145 / 81 50 96 % 36 10:18 AM 152 / 79 52 97 % 34 10:11 AM / % 4 = Oriented but drowsy Procedural Medications Time Medication Dose Units Method Given By 09:45 AM Oxygen 2 L/min nasal cannula Luis Felipe Downs RN 09:40 AM Versed 2 mg Intravenous Luis Felipe Downs RN 10:02 AM Lidocaine 2% 10 ml Subcutaneous Rashi Horne DO ASA Classification: CLASS III- Severe systemic disease (i.e. prior AMI, diabetes with vascular complications, morbid obesity) Yaneth Score Preprocedure Postprocedure Activity 2- Moves 4 extremities sustained head lift Activity 2- Moves 4 extremities sustained head lift Circulation 2- SBP +/= 20 points of pre-anesthetic level Circulation 2- SBP +/= 20 points of pre-anesthetic level Consciousness 2- Awake and alert oriented x 3 Consciousness 2- Awake and alert oriented x 3 O2 Saturation 2- Able to maintain O2 satruation of 92% on room air O2 Saturation 2- Able to maintain O2 satruation of 92% on room air Respiratory 2- Able to deep breathe and cough well Respiratory 2- Able to deep breathe and cough well Total Score 10 Total Score 10 Contrast Agent: Isovue Diagnostic Contrast: 50 ml Total Contrast: 50 ml Fluoro Dose: 352 mGy Procedure Log Time Note Enter By 09:33 AM CathStat 09:39 AM 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 csmith 09:40 AM Procedure start 09:40 csmith 09:40 AM Case Start 09:40 AM Time: :40 Oxygen on at 2 L/min per nasal cannula by Luis Felipe Downs RN csmith 09:40 AM Time: :40 Versed 2 mg Intravenous Given by Luis Felipe Downs RN csmith 09:41 AM Marisa Ramirez (R) Position: Scrub Time in: : csmith 09:41 AM Time: :41 Patient comfortable and pain free: Yes csmith 09:41 AM Time: :LOC: 5 = Fully awake and oriented or at pre-proc level csmith 09:42 AM Vitals capture started with the following parameters, Patient=Adult, Interval=5 min, Initial Asfpgspt=455 mmHg, Deflation Rate=5 mmHg, Cuff placed on Right Arm 09:42 AM Vitals capture stopped. 09:43 AM Vitals capture started with the following parameters, Patient=Adult, Interval=5 min, Initial Stspqlag=433 mmHg, Deflation Rate=5 mmHg, Cuff placed on Right Arm 09:43 AM HR=84 bpm, URLL=579/92 mmhg, SpO2=94.0 %, Resp=5 B/min, Comment=nsr 09:45 AM Luis Felipe Downs RN Position: Packaging Manager Time in: :45 csmith 09:48 AM HR=50 bpm, HSDO=849/74 mmhg, SpO2=94.0 %, Resp=29 B/min, Comment=sb 09:51 AM ASA Class CLASS III- Severe systemic disease (i.e. prior AMI, diabetes with vascular complications, morbid obesity) csmith 09:53 AM HR=50 bpm, CNFT=541/69 mmhg, SpO2=94.0 %, Resp=25 B/min, Comment=sb 09:56 AM Pressure channel 2 zeroed. :56 AM Time: :41 Patient comfortable and pain free: Yes csmith 09:56 AM Time: :LOC: 4 = Oriented but drowsy csmith 09:59 AM HR=50 bpm, UMDD=377/70 mmhg, SpO2=94.0 %, Comment=sb 10:00 AM Time out performed according to hospital policy csmith 10:02 AM Time: 10:02 10 ml Lidocaine 2% to right groin Subcutaneous Given by Rashi Horne DO csmith 10:02 AM Micro-Introducer Kit utilized for sheath placement csmith 10:04 AM HR=51 bpm, VUQP=731/72 mmhg, SpO2=94.0 %, Comment=sb 10:05 AM Access obtained by percutaneous puncture. 4Fr 10cm Terumo [place] sheath placed in right Femoral vein. [id number] csmith 10:06 AM Access obtained by percutaneous puncture. 6Fr 10cm Terumo [place] sheath placed in right Femoral artery. [id number] csmith 10:06 AM 6Fr FR 4 catheter inserted over the wire [facility] csmith 10:07 AM 0.035 145cm Navilyst 3mmJ wire [id number] csmith 10:08 AM HR=67 bpm, YAQI=667/72 mmhg, SpO2=95.0 %, Resp=33 B/min, Comment=sr 10:09 AM Pressure channel 2 zeroed. 10:09 AM Recorded Pressure: LV, HR=59, Condition=Condition 1 (Left Ventricle) LV 88/8/16 10:09 AM Catheter selectively placed in left ventricle csmith 10:09 AM Recorded Pressure: LV, Ao, HR=68, Condition=Condition 1 (Left Ventricle) LV 119/-5/13, (Aorta) Ao 114/60/79 10:09 AM Bolus angiogram of left Ventricle complete: hand injection csmith 10:10 AM 6Fr FL 4 catheter inserted over the wire [facility] csmith 10:10 AM RCA angiography performed in multiple views. csmith 10:11 AM Lesion found in Distal RCA. Pre Stenosis: 60 Pre SARTHAK Flow: 3: Complete and Brisk Flow/Perfusion csmith 10:11 AM Time: 09:56LOC: 4 = Oriented but drowsy csmith 10:11 AM Recorded Pressure: Ao, HR=51, Condition=Condition 1 (Aorta) Ao 115/52/74 10:12 AM Time: 09:56 Patient comfortable and pain free: Yes csmith 10:12 AM LCA angiography performed in multiple views. csmith 10:13 AM Recorded Pressure: Ao, HR=50, Condition=Condition 1 (Aorta) Ao 125/53/79 10:13 AM HR=50 bpm, PEPD=166/81 mmhg, SpO2=96.0 %, Resp=36 B/min, Comment=sb 10:13 AM Catheter removed csmith 10:14 AM Bolus angiogram of right Femoral complete: hand injection csmith 10:14 AM Wire removed csmith 10:14 AM Conversation between Interventionalist and CT Surgeon (Dr. Clay notified of c/s) csmith 10:15 AM Procedure completed at 10:15 csmith 10:15 AM Did you address SARTHAK flow and Dominance? Yes csmith 10:16 AM Sign out completed: Radiation Dose 352 mGy Fluoro Time: 1.6 Isovue 370 - 200ml contrast 50 ml given by Rashi Horne DO. Complications: NoneCardiac Rehab Consult needed: YesConfirmed administered medications: Yes csmith 10:16 AM Isovue 370 - 200ml,1 Bottle(s) used. csmith 10:16 AM Arterial sheath pulled, Angio-seal closure device used and was Successful [id number] S/N. csmith 10:17 AM Estimated Blood Loss: minimal csmith 10:17 AM Post ECG NSR csmith 10:17 AM Post Blood Pressure 145/81 csmith 10:17 AM 10:17 Post Pulses Bilateral DP 2+ csmith 10:17 AM Information taught Cardiac Cath csmith 10:17 AM Education needs Responsibilities of Patient in Care csmith 10:17 AM Learning barriers :None csmith 10:17 AM Education Methods Verbal csmith 10:17 AM Education evaluation Able to repeat information csmith 10:18 AM Site status No bleeding/hematoma - Rt Groin as reported by Sites, Marisa RT (R) at 10:17 csmith 10:18 AM HR=52 bpm, CMCD=432/79 mmhg, SpO2=97.0 %, Resp=34 B/min, Comment=sb 10:18 AM Opsite applied csmith 10:18 AM Plavix, Effient or Brilinta given No csmith 10:21 AM Venous sheath pulled using manual compression and for 10 minutes by Sites, Marisa RT (R) csmith 10:24 AM Report given to Bc DE OLIVEIRA 10:24 csmith 10:27 AM Time: 10:11LOC: 4 = Oriented but drowsy csmith 10:27 AM What is the NYHA Class? Class 2 csmith 10:27 AM Lesion found in Mid LAD. Pre Stenosis: 80 Pre SARTHAK Flow: 3: Complete and Brisk Flow/Perfusion csmith 10:27 AM Lesion found in Mid Circumflex. Pre Stenosis: 90 Pre SARTHAK Flow: 3: Complete and Brisk Flow/Perfusion csmith 10:29 AM Patient out of room: 10:29 csmith 10:29 AM No family available csmith 10:31 AM Patient out of room: 10:30 csmith Complications Complication None Hemodynamics Pressures Site Systolic/A Wave Diastolic/V Wave Mean LV 88 8 16 LV 119 -5 13 AO 114 60 79 AO 115 52 74 AO 125 53 79 Post Procedure Information Blood Pressure: 145/81 mmHg Rhythm: NSR Post procedural instructions were given Surgery consult for CABG Closure Device Time Device Success/Fail Angio-Seal VIP Successful Manual Compression Successful Site Checks Time Location Status Staff Sheath In? Note 10:17 AM Rt Groin No bleeding/hematoma Sites, Mairsa RT (R) Pulses Time Site Pre-Procedure Post-Procedure Note 07/03/2017 9:35:00 AM Bilateral DP 2+ 07/03/2017 9:35:00 AM Bilateral radial 2+ 10:17:00 AM Bilateral DP 2+ Updated by Austin Cruz RN on 07/03/2017 10:31:04 AM electronically signed on 07/03/2017 10:31:28 AM with status of Final
--- NOTE | 2017-07-03 11:15 | Event Note ---
Date of Encounter: 07/03/17 Time of Encounter: 11:13 Patient seen earlier this morning, prior to cardiac catheterization. Sitting up at bedside. No chest pain reported. Blood pressure better than previous, but remains suboptimally controlled. Medication adjustment yesterday. Continue to monitor for now and make changes as needed. Catheterization demonstrated multivessel CAD. CABG recommended. Consult from CT surgery pending. Thanks, Davie Laura DO, FACC
[2017-07-03] MEDS: *HR* Enoxaparin 120 MG/0.8 ML SYRINGE SQ SCH ×2 (11:26→22:08)
[2017-07-03] MEDS: 0.9 % Sodium Chloride 1,000 ML IVC SCH ×2 (11:26→21:49)
--- NOTE | 2017-07-03 11:38 | Cardiothoracic Consult Note ---
Date of Encounter: 07/04/17 Time of Encounter: 11:34 Assessment and Plan (1) CAD (coronary artery disease) Current Visit: Yes Status: Acute The patient is a 56 year old poorly controlled type II diabetic, hypertensive, moderately obese man with cholesterolemia and chronic kidney disease, stage IIIa. The patient again noticing shortness of breath and dyspnea on exertion 4 months prior to admission; however, symptoms have become worse during the last month. He was admitted to [facility] and underwent extensive cardiac workup. A transthoracic echocardiogram revealed an LVEF 60%, normal left ventricular chamber size and function, moderate concentric left ventricular hypertrophy, and moderate left ventricular diastolic dysfunction. He was also noted to have a moderate to severely dilated left atrium and evidence of mild mitral stenosis (mean gradient of 4 mmHg). There was evidence of moderate pulmonary hypertension with an RVSP 49 mmHg. He underwent cardiac catheterization today and was found to have severe 3 vessel CAD. In particular, the patient has an 80% mid LAD lesion, a 90% proximal LCx lesion, and a 60% distal RCA lesion. He has been recommended for CABG. The procedure was explained to both the patient and his . I was informed that the patient and his are Jehovah witnesses and or declining blood transfusions. While I respect their bahai beliefs, I will not perform the CABG on this patient if I am unable to administer potentially lifesaving blood products either intraoperatively or postoperatively. I discussed transferred to [facility] which is a designated Center recognized by the mobile witness holiness for possible bloodless CABG. The assessment and plan as outlined above was discussed with the patient and/or family members who expressed understanding and agreement. All questions were answered. Qualifiers: Coronary Disease-Associated Artery/Lesion type: [place] artery [place] vs. transplanted heart: [place] heart Associated angina: with other forms of angina Qualified Code(s): I25.118 - Atherosclerotic heart disease of [place] coronary artery with other forms of angina pectoris - History of Present Illness Consult date: 07/03/17 Requesting physician: Rashi Horne Consult reason: CABG evaluation Chief complaint: Shortness of breath, dyspnea on exertion History of present illness: Mr. Borges is a 56 year old poorly controlled type II diabetic, hypertensive, moderately obese man with cholesterolemia and chronic kidney disease, stage IIIa. The patient again noticing shortness of breath and dyspnea on exertion 4 months prior to admission; however, symptoms have become worse during the last month. He had been evaluated at and in [facility] in March 2017 and recommended for cardiac catheterization at that time. He declined, dating that he wished to be treated medically since he was asymptomatic at that time. He was re-evaluated at [facility] on Friday, June 30, 2017 because of his progressive symptoms and was found to have mildly elevated troponin I levels. He was admitted for further cardiac workup. He underwent a transthoracic echocardiogram which revealed an LVEF 60%, normal left ventricular chamber size and function, moderate concentric left ventricular hypertrophy, and moderate left ventricular diastolic dysfunction. He was also noted to have a moderate to severely dilated left atrium and evidence of mild mitral stenosis (mean gradient of 4 mmHg). There was evidence of moderate pulmonary hypertension with an RVSP 49 mmHg. He underwent cardiac catheterization today and was found to have severe 3 vessel CAD. In particular, the patient has an 80% mid LAD lesion, a 90% proximal LCx lesion, and a 60% distal RCA lesion. He has been recommended for CABG. Past Med Surg Social Fam HX - Past Medical History Medical history: coronary artery disease, diabetes, GERD, hyperlipidemia, hypertension, renal disease (CKD, Stage IIIa), other Psychiatric history: no psych history - Past Surgical History Surgical History: orthopedic, other (Right knee arthrotomy with ligament repair) - Social History Smoking Status: Never smoker Smokeless Tobacco Status: No Alcohol use: none Drug use: none Occupational status: employed Current living situation: Home - Independent Activity Level: Independent ambulation, Very active Recent Out of Country Travel Within the Last 8 Weeks: No Exposure or Possible Exposure to Illness During Travel: No - Family History Mother Living Status: Age at : 50 Cause of : growth on heart and lungs Father Living Status: Age at : 55 Cause of : unknown Medications and Allergies Amlodipine Besylate 10 mg PO DAILY 01/23/17 [History] Carvedilol [Coreg] 25 mg PO BID 01/23/17 [History] Glimepiride [Amaryl] 2 mg PO 0800 01/23/17 [History] Metformin HCl [Glucophage] 1,000 mg PO BID 01/23/17 [History] Omeprazole [PriLOSEC] 20 mg PO DAILY 01/23/17 [History] Simvastatin [Zocor] 40 mg PO HS 01/23/17 [History] cloNIDine HCl [Clonidine HCl] 0.2 mg PO TID 01/23/17 [History] Albuterol Sulfate [Ventolin Hfa] 2 puff IH Q4H PRN 06/30/17 [History] Empagliflozin [Jardiance] 25 mg PO DAILY 06/30/17 [History] 3 Allergy/AdvReac Type Severity Reaction Status Date / Time No Known Allergies Allergy Verified 06/30/17 14:06 All Systems Review: A 10-system review of systems was performed and is negative for pertinent findings except as documented above in the HPI. Physical Examination Vital Signs, Last 4 Hours Temp Pulse Resp BP Pulse Ox 07/03/17 11:06 97.1 F L 52 16 151/84 95 07/03/17 10:50 97.1 F L 51 18 134/68 92 General: Conversant, No Apparent Distress HEENT: Atraumatic, Normocephaly, Trachea midline Neck: No JVD, Normal carotid pulses Cardiac: Reg Rate and Rhythm, Normal S1 and S2, No Murmur Lungs: Normal Breath Sounds, No Wheeze, Rales, Rhonchi Neuro: Alert and responsive, No focal deficits noted, Motor nerves intact Vascular: Normal capillary refill Abdomen: Soft Skin: No rashes noted on visualized skin Musculoskeletal: No Chest Wall Tenderness Extremities: No Clubbing, No Cyanosis, Other (Bilateral lower extremity edema with venous stasis changes from the knees to the ankles) Results 07/04/17 03:11 07/04/17 03:11 Lab Results, Last 24 hours 07/03/17 07/03/17 07/03/17 05:41 05:41 05:41 WBC 6.9 Hgb 11.2 L Hct 34.8 L Plt Count 220 Sodium 142 Potassium 3.5 Chloride 111 H Carbon Dioxide 25 BUN 16 Creatinine 1.33 H Glucose 203 H Calcium 7.9 L Magnesium 1.9 - Imaging Chest Xray: image reviewed (Cardiomegaly. Central pulmonary vein prominence. Patchy bilateral airspace opacities.) Consult Discharge Plan - Plan Referrals: Yousuf Harrison MD [Primary Care Provider] -
--- NOTE | 2017-07-03 13:05 | Internal Med Progress Note ---
Date of Encounter: 07/03/17 Time of Encounter: 13:03 - Assessment and plan (1) Acute renal failure Current Visit: Yes Status: Acute Assessment and plan: Continue to hold nephrotoxins. The patient was on Lasix and this has been on hold. Creatinine improved today.. Ultrasound were unremarkable. We will continue to monitor. Qualifiers: Acute renal failure type: unspecified Qualified Code(s): N17.9 - Acute kidney failure, unspecified (2) Acute exacerbation of CHF (congestive heart failure) Current Visit: Yes Status: Acute Assessment and plan: Likely an exacerbation of diastolic heart failure. Currently seems euvolemic. He is on room air. No need for anymore diuresis given elevated creatinine. Continue with beta pallavi. Patient is also on aspirin. Needs better blood pressure control. Qualifiers: Heart failure type: diastolic Qualified Code(s): I50.33 - Acute on chronic diastolic (congestive) heart failure (3) Abnormal stress test Current Visit: Yes Status: Acute Assessment and plan: Status post left heart catheterization with three-vessel disease noted. Cardiothoracic consult.. (4) Diabetes mellitus Current Visit: Yes Status: Acute Assessment and plan: A1C 8.8 . Continue insulin sliding scale. Continue Accu-Cheks. Qualifiers: Diabetes mellitus type: type 2 Diabetes mellitus complication status: without complication Diabetes mellitus mcc insulin use: without buttermaker use Qualified Code(s): E11.9 - Type 2 diabetes mellitus without complications (5) Elevated troponin Current Visit: Yes Status: Acute Assessment and plan: Status post left heart catheterization with finding as above. (6) HTN (hypertension) Current Visit: Yes Status: Acute Assessment and plan: The pressure is better. Continue with Norvasc 10 mg daily, continue clonidine 0.3 mg 3 times a day. Continue with Coreg 25 mg twice a day. Heart rate remains in the 50s. He is also on Imdur. Hydralazine IV when necessary. Qualifiers: Hypertension type: essential hypertension Qualified Code(s): I10 - Essential (primary) hypertension (7) DVT (deep venous thrombosis) Current Visit: Yes Status: Acute Assessment and plan: Awaiting official report. Preliminary report with acute findings. Patient is on Lovenox 120 mg subcutaneous twice a day. Qualifiers: DVT location: lower extremity Affected thrombotic vein of extremity: unspecified vein of extremity Chronicity: unspecified Laterality: unspecified laterality Qualified Code(s): I82.409 - Acute embolism and thrombosis of unspecified deep veins of unspecified lower extremity (8) DVT prophylaxis Current Visit: Yes Status: Acute Assessment and plan: On therapeutic Lovenox. (9) HLD (hyperlipidemia) Current Visit: Yes Status: Acute Qualifiers: Hyperlipidemia type: unspecified Qualified Code(s): E78.5 - Hyperlipidemia , unspecified - Subjective Interval history: Patient was seen and examined. No acute events. Has been afebrile. Underwent left heart catheterization which showed three-vessel disease and was recommended a CABG. The patient's blood pressure is better however the systolic is still in the 150s. Remains on room air. He was admitted initially with an acute exacerbation of diastolic heart failure. Patient has had an abnormal stress test back in March 2017 for which she refused left heart catheterization. Cardiology is following now. Stay is complicated by an elevation in creatinine. - Constitutional Vitals: Temp Pulse Resp BP Pulse Ox 97.7 F 52 16 158/76 93 07/03/17 12:06 07/03/17 12:06 07/03/17 12:06 07/03/17 12:06 07/03/17 12:06 General appearance: Present: A&O X 3, no acute distress, obese, answers questions appropriately Exam: GEN: NAD CVS: RRR. S1, S2, No m/r/g RESP: CTAB ABD: Soft, NT, ND, +BS EXT: 1+ edema. 2+ DP. No rashes NEURO: Nonfocal Internal Medicine: Result - Labs CBC & Chem 7: 07/03/17 05:41 07/03/17 05:41 Labs: Short CBC 07/03/17 Range/Units 05:41 WBC 6.9 (4.3-11.1) K/mcL Hgb 11.2 L (12.9-16.9) g/dL Hct 34.8 L (37.5-50.1) % Plt Count 220 (140-400) K/mcL Neutrophils # 4.9 (1.6-8.9) K/mcL BMP 07/03/17 05:41 Sodium 142 Potassium 3.5 Chloride 111 H Carbon Dioxide 25 BUN 16 Creatinine 1.33 H Glucose 203 H Calcium 7.9 L - ABG Interpretation ABG results: PT/INR, D-dimer D-Dimer 1169 ng/mLFEU (0-500) H 06/30/17 14:14 - Impressions Impressions Retroperitoneum Ultrasound 07/02/17 13:30 IMPRESSION: 1. Unremarkable appearance of the kidneys. 2. Incidental note of cholelithiasis. D/ / Lorrie Jaime MD / Lorrie Jaime MD Interpreting Provider: Lorrie Jaime MD Consult Discharge Plan - Plan Referrals: Yousuf Harrison MD [Primary Care Provider] -
--- NOTE | 2017-07-03 14:22 | Event Note ---
Date of Encounter: 07/03/17 Time of Encounter: 14:00 - Cardiology Event Note Reviewed [facility] with . LHC demonstrated severe 3v CAD, CABG recommended. CT surgery consulted. Patient is [place]. Recommend referral to tertiary care center. Would recommend inpatient transfer to [facility] for bloodless surgery. No further inpatient recommendations from Cardiology standpoint. Plan communicated with primary team. Cardiology will sign-off.
[2017-07-04 04:00] LABS: Basophils % 0.4 %; Eosinophils # 0.2 K/mcL (0.0-0.6); Eosinophils % 2.8 %; Hematocrit 35.6 % (37.5-50.1); Hemoglobin 11.3 g/dL (12.9-16.9); Immature Granulocytes % 0.4 % (0-4); Lymphocytes # 1.4 K/mcL (0.6-4.6); Lymphocytes % 20.8 %; Mean Corpuscular HGB Conc 31.7 g/dL (31.6-35.5); Mean Corpuscular Hemoglobin 26.7 pg (28.0-33.3); Mean Platelet Volume 10.9 fL (9.4-12.4); Monocytes # 0.4 K/mcL (0.0-1.3); Monocytes % 6.5 %; Neutrophils # 4.7 K/mcL (1.6-8.9); Platelet Count 201 K/mcL (140-400); Red Blood Count 4.24 M/mcL (4.19-5.50); Segmented Neutrophils % 69.1 %
[2017-07-04 04:41] LABS: BUN/Creatinine Ratio 12 (6-26); Blood Urea Nitrogen 16 mg/dL (6-20); Carbon Dioxide 23 mEq/L (23-29); Chloride 112 mEq/L (98-107); Glucose 184 mg/dL (70-105); Osmolality,Calculated 300 (280-300); Potassium 3.7 mEq/L (3.5-5.1); Sodium 142 mEq/L (136-145); eGFR For African Americans > 60 (> 60); eGFR For Non-African Americans 54 (> 60)
[2017-07-04] MEDS: Insulin LISPRO 300 UNITS/3 ML VIAL SQ SCH ×3 (09:46→17:42)
[2017-07-04] MEDS: Isosorbide MONOnitrate (24 HR) 30 MG TAB.ER.24H PO SCH (09:47)
[2017-07-04] MEDS: Aspirin 325 MG TABLET PO SCH (09:48)
[2017-07-04] MEDS: amLODIPine 5 MG TABLET PO SCH (09:48)
[2017-07-04] MEDS: *HR* Enoxaparin 120 MG/0.8 ML SYRINGE SQ SCH ×2 (09:48→23:59)
[2017-07-04] MEDS: cloNIDine HCl 0.1 MG TABLET PO SCH ×3 (09:48→20:08)
--- NOTE | 2017-07-04 11:42 | Internal Med Progress Note ---
Date of Encounter: 07/04/17 Time of Encounter: 11:39 - Assessment and plan (1) Expressive aphasia Current Visit: Yes Status: Acute Assessment and plan: CT head negative. We will get an MRI brain. The patient has no other neurological findings. We will get speech to see the patient. Make him nothing by mouth for now (2) Acute renal failure Current Visit: Yes Status: Acute Assessment and plan: Continue to hold nephrotoxins. The patient was on Lasix and this has been on hold. Creatinine around the same the last couple days.. Ultrasound were unremarkable. We will continue to monitor. Qualifiers: Acute renal failure type: unspecified Qualified Code(s): N17.9 - Acute kidney failure, unspecified (3) Acute exacerbation of CHF (congestive heart failure) Current Visit: Yes Status: Acute Assessment and plan: Likely an exacerbation of diastolic heart failure. Currently seems euvolemic. He is on room air. No need for anymore diuresis given elevated creatinine. Continue with beta pallavi. Patient is also on aspirin. Needs better blood pressure control. Qualifiers: Heart failure type: diastolic Qualified Code(s): I50.33 - Acute on chronic diastolic (congestive) heart failure (4) Abnormal stress test Current Visit: Yes Status: Acute Assessment and plan: Status post left heart catheterization with three-vessel disease noted. 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 This is not what the patient was telling me yesterday. His is actually the one who was against the blood but not the patient. I spoke to his and she said it is up to the patient to decide on whether he will receive blood or not. She is okay with his decision. I expressed this to the cardiothoracic's physician who is not willing to operate on the patient in our facility and is recommending transfer still. We will work on that once his issue of garbled speech is resolved (5) Diabetes mellitus Current Visit: Yes Status: Acute Assessment and plan: A1C 8.8 . Continue insulin sliding scale. Continue Accu-Cheks. Qualifiers: Diabetes mellitus type: type 2 Diabetes mellitus complication status: without complication Diabetes mellitus long term care social worker insulin use: without long term care social worker use Qualified Code(s): E11.9 - Type 2 diabetes mellitus without complications (6) Elevated troponin Current Visit: Yes Status: Acute Assessment and plan: Status post left heart catheterization with finding as above. (7) HTN (hypertension) Current Visit: Yes Status: Acute Assessment and plan: The pressure is elevated. Continue with Norvasc 10 mg daily, continue clonidine 0.3 mg 3 times a day. Continue with Coreg 25 mg twice a day. Add lisinopril 10 mg. Heart rate remains in the 50s. He is also on Imdur. Hydralazine IV when necessary. Qualifiers: Hypertension type: essential hypertension Qualified Code(s): I10 - Essential (primary) hypertension (8) DVT (deep venous thrombosis) Current Visit: Yes Status: Acute Assessment and plan: Confirmed on official report. Patient is on Lovenox 120 mg subcutaneous twice a day. Qualifiers: DVT location: lower extremity Affected thrombotic vein of extremity: unspecified vein of extremity Chronicity: unspecified Laterality: unspecified laterality Qualified Code(s): I82.409 - Acute embolism and thrombosis of unspecified deep veins of unspecified lower extremity (9) HLD (hyperlipidemia) Current Visit: Yes Status: Acute Assessment and plan: Statin has been increased to maximum dose of 80 mg of atorvastatin. Patient's LDL is noted to be 216. Qualifiers: Hyperlipidemia type: unspecified Qualified Code(s): E78.5 - Hyperlipidemia , unspecified (10) DVT prophylaxis Current Visit: Yes Status: Acute Assessment and plan: On therapeutic Lovenox. - Subjective Interval history: Patient was seen and examined. The patient this morning is having garbled speech. Yesterday evening he had some of that apparently and a CT head was done which was negative. This is worse now. No sensory deficits. No weakness whatsoever. Has been afebrile. Underwent left heart catheterization which showed three-vessel disease and was recommended a CABG. was seen by cardiothoracic's and apparently the patient is a Sabianist and cardiothoracic physician was told that the patient would not accept blood. This is not what the patient was telling me yesterday. His is actually the one who was against the blood but not the patient. I spoke to his and she said it is up to the patient to decide on whether he will receive blood or not. She is okay with his decision. I expressed this to the cardiothoracic's doctor who is not willing to operate on the patient in our facility and is recommending transfer still. The patient's blood pressure is elevated with systolic in the 170s. Remains on room air. He was admitted initially with an acute exacerbation of diastolic heart failure. Patient has had an abnormal stress test back in March 2017 for which she refused left heart catheterization. Stay is complicated by an elevation in creatinine. - Constitutional Vitals: Temp Pulse Resp BP Pulse Ox 98.2 F 68 16 184/79 92 07/04/17 07:17 07/04/17 07:17 07/04/17 07:17 07/04/17 07:17 07/04/17 07:17 General appearance: Present: A&O X 3, no acute distress, obese, answers questions appropriately Exam: GEN: Not in acute distress. CVS: RRR. S1, S2, No m/r/g RESP: CTAB ABD: Soft, NT, ND, +BS EXT: 1+ edema. 2+ DP. No rashes NEURO: The patient is having expressive aphasia. He is not making sense with his words. He is not able to get words out at all. He has no other neurological deficits Internal Medicine: Result - Labs CBC & Chem 7: 07/04/17 03:11 07/04/17 03:11 Labs: Short CBC 07/04/17 Range/Units 03:11 WBC 6.8 (4.3-11.1) K/mcL Hgb 11.3 L (12.9-16.9) g/dL Hct 35.6 L (37.5-50.1) % Plt Count 201 (140-400) K/mcL Neutrophils # 4.7 (1.6-8.9) K/mcL BMP 07/04/17 03:11 Sodium 142 Potassium 3.7 Chloride 112 H Carbon Dioxide 23 BUN 16 Creatinine 1.37 H Glucose 184 H Calcium 8.0 L - ABG Interpretation ABG results: PT/INR, D-dimer D-Dimer 1169 ng/mLFEU (0-500) H 06/30/17 14:14 - Impressions Impressions Head CT 07/03/17 18:29 IMPRESSION: No acute intracranial abnormality. D/ / Carlo Mai MD / Carlo Mai MD Interpreting Provider: Carlo Mai MD Consult Discharge Plan - Plan Referrals: Yousuf Harrison MD [Primary Care Provider] -
[2017-07-05 07:50] LABS: Basophils % 0.4 %; Eosinophils # 0.2 K/mcL (0.0-0.6); Eosinophils % 3.1 %; Hematocrit 36.2 % (37.5-50.1); Hemoglobin 11.4 g/dL (12.9-16.9); Immature Granulocytes % 0.6 % (0-4); Lymphocytes # 1.2 K/mcL (0.6-4.6); Lymphocytes % 16.3 %; Mean Corpuscular HGB Conc 31.5 g/dL (31.6-35.5); Mean Corpuscular Hemoglobin 26.3 pg (28.0-33.3); Mean Corpuscular Volume 83.6 fL (83.0-100.0); Mean Platelet Volume 11.8 fL (9.4-12.4); Monocytes # 0.3 K/mcL (0.0-1.3); Monocytes % 4.7 %; Neutrophils # 5.4 K/mcL (1.6-8.9); Platelet Count 235 K/mcL (140-400); Red Blood Count 4.33 M/mcL (4.19-5.50); Red Cell Distribution Width 14.2 % (11.5-14.5); Segmented Neutrophils % 74.9 %
[2017-07-05 08:05] LABS: BUN/Creatinine Ratio 11 (6-26); Blood Urea Nitrogen 14 mg/dL (6-20); Calcium 8.1 mg/dL (8.6-10.3); Carbon Dioxide 23 mEq/L (23-29); Chloride 111 mEq/L (98-107); Glucose 202 mg/dL (70-105); Osmolality,Calculated 298 (280-300); Potassium 3.8 mEq/L (3.5-5.1); Sodium 141 mEq/L (136-145); eGFR For African Americans > 60 (> 60); eGFR For Non-African Americans 60 (> 60)
--- NOTE | 2017-07-05 08:32 | Internal Med Progress Note ---
Date of Encounter: 07/05/17 Time of Encounter: 08:30 - Assessment and plan (1) Acute CVA (cerebrovascular accident) Current Visit: Yes Status: Acute Assessment and plan: 5 to have an acute infarct on MRI brain. Consult neurology. The patient is on aspirin and statin. We will rule out an embolic phenomena. He does have lower extremity DVT. He is on Lovenox therapeutic dose. We will check an echocardiogram with bubble study. Check carotid ultrasound. Bedside swallow and speech evaluation. He does have uncontrolled hypertension and it is okay to have Permissive hypertension for now. A1c and lipid panel noted. (2) Acute renal failure Current Visit: Yes Status: Acute Assessment and plan: This is improving. We have been holding his nephrotoxins including lasix. I may have to even a dose of Lasix today given his hypoxia and shortness of breath. . Qualifiers: Acute renal failure type: unspecified Qualified Code(s): N17.9 - Acute kidney failure, unspecified (3) Acute exacerbation of CHF (congestive heart failure) Current Visit: Yes Status: Acute Assessment and plan: Likely an exacerbation of diastolic heart failure. Patient feels short of breath. He does have some ankle edema. We will check a BNP. Check a chest x- ray. I may have to give him a dose of Lasix. Continue with beta pallavi. Patient is also on aspirin. Needs better blood pressure control. Qualifiers: Heart failure type: diastolic Qualified Code(s): I50.33 - Acute on chronic diastolic (congestive) heart failure (4) Abnormal stress test Current Visit: Yes Status: Acute Assessment and plan: Status post left heart catheterization with three-vessel disease noted. 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 This is not what the patient was telling me yesterday. His is actually the one who was against the blood but not the patient. I spoke to his and she said it is up to the patient to decide on whether he will receive blood or not. She is okay with his decision. I expressed this to the cardiothoracic's physician who is not willing to operate on the patient in our facility and is recommending transfer still. We will work on that once acute CVA is worked up. (5) Diabetes mellitus Current Visit: Yes Status: Acute Assessment and plan: A1C 8.8 . Continue insulin sliding scale. Continue Accu-Cheks. Qualifiers: Diabetes mellitus type: type 2 Diabetes mellitus complication status: without complication Diabetes mellitus intermodal dispatcher insulin use: without intermodal dispatcher use Qualified Code(s): E11.9 - Type 2 diabetes mellitus without complications (6) Elevated troponin Current Visit: Yes Status: Acute Assessment and plan: Status post left heart catheterization with finding as above. (7) HTN (hypertension) Current Visit: Yes Status: Acute Assessment and plan: The pressure is elevated. It is okay to allow for permissive hypertension for now. Continue with Norvasc 10 mg daily, continue clonidine 0.3 mg 3 times a day. Continue with Coreg 25 mg twice a day. lisinopril 10 mg. Heart rate remains in the 50s. He is also on Imdur. Hydralazine IV when necessary. Qualifiers: Hypertension type: essential hypertension Qualified Code(s): I10 - Essential (primary) hypertension (8) DVT (deep venous thrombosis) Current Visit: Yes Status: Acute Assessment and plan: Confirmed on official report. Patient is on Lovenox 120 mg subcutaneous twice a day. Qualifiers: DVT location: lower extremity Affected thrombotic vein of extremity: unspecified vein of extremity Chronicity: unspecified Laterality: unspecified laterality Qualified Code(s): I82.409 - Acute embolism and thrombosis of unspecified deep veins of unspecified lower extremity (9) HLD (hyperlipidemia) Current Visit: Yes Status: Acute Assessment and plan: Statin has been increased to maximum dose of 80 mg of atorvastatin. Patient's LDL is noted to be 216. Qualifiers: Hyperlipidemia type: unspecified Qualified Code(s): E78.5 - Hyperlipidemia , unspecified (10) DVT prophylaxis Current Visit: Yes Status: Acute Assessment and plan: On therapeutic Lovenox. - Subjective Interval history: Patient was seen and examined. MRI showed an acute infarct. The patient's garbled speech is improved. He has no other weaknesses or sensory deficits. He says that he is having shortness of breath. He remains on the liters of oxygen that he has been on. Has been afebrile. Underwent left heart catheterization which showed three-vessel disease and was recommended a CABG. was seen by cardiothoracic's and apparently the patient is a Episcopalian and cardiothoracic physician was told that the patient would not accept blood. This is not what the patient was telling me yesterday. His is actually the one who was against the blood but not the patient. I spoke to his and she said it is up to the patient to decide on whether he will receive blood or not. She is okay with his decision. I expressed this to the cardiothoracic's doctor who is not willing to operate on the patient in our facility and is recommending transfer still. The patient's blood pressure is elevated with systolic in the 170s. Remains on room air. He was admitted initially with an acute exacerbation of diastolic heart failure. Patient has had an abnormal stress test back in March 2017 for which she refused left heart catheterization. Stay is complicated by an elevation in creatinine. - Constitutional Vitals: Temp Pulse Resp BP Pulse Ox 97.9 F 67 16 194/87 96 07/05/17 07:14 07/05/17 07:14 07/05/17 07:14 07/05/17 07:14 07/05/17 07:14 General appearance: Present: A&O X 3, no acute distress, obese, answers questions appropriately Exam: GEN: Not in acute distress. CVS: RRR. S1, S2, No m/r/g RESP: CTAB ABD: Soft, NT, ND, +BS EXT: 1+ edema. 2+ DP. No rashes NEURO: The patient is having expressive aphasia. This is improved compared to last. He is not able to get words out at all. He has no other neurological deficits Internal Medicine: Result - Labs CBC & Chem 7: 07/05/17 06:21 07/05/17 06:21 Labs: Short CBC 07/05/17 Range/Units 06:21 WBC 7.2 (4.3-11.1) K/mcL Hgb 11.4 L (12.9-16.9) g/dL Hct 36.2 L (37.5-50.1) % Plt Count 235 (140-400) K/mcL Neutrophils # 5.4 (1.6-8.9) K/mcL BMP 07/05/17 06:21 Sodium 141 Potassium 3.8 Chloride 111 H Carbon Dioxide 23 BUN 14 Creatinine 1.26 Glucose 202 H Calcium 8.1 L - ABG Interpretation ABG results: PT/INR, D-dimer D-Dimer 1169 ng/mLFEU (0-500) H 06/30/17 14:14 - Impressions Impressions Brain MRI 07/04/17 11:16 IMPRESSION: Acute infarct involving the left periventricular white matter in the left middle cerebral artery territory. No other areas of abnormal signal in the brain parenchyma. D/ / 07/04/2017 12:53:31 Peggy Lomeli MD / [facility] Interpreting Provider: Peggy Lomeli MD Consult Discharge Plan - Plan Referrals: Yousuf Harrison MD [Primary Care Provider] -
[2017-07-05] MEDS ORDERED: Furosemide 40 MG/4 ML VIAL IVP ONE (09:28)
[2017-07-05] MEDS ORDERED: Perflutren Lipid Microsphere 1.3 ML in 0.9 % Sodium Chloride 8.7 ML IVP ONE (09:48)
[2017-07-05] MEDS: 0.9 % Sodium Chloride 1,000 ML IVC SCH (10:27)
[2017-07-05] MEDS: Insulin LISPRO 300 UNITS/3 ML VIAL SQ SCH ×3 (10:28→17:04)
[2017-07-05] MEDS: cloNIDine HCl 0.1 MG TABLET PO SCH ×4 (10:30→21:47)
[2017-07-05] MEDS: amLODIPine 5 MG TABLET PO SCH (10:30)
[2017-07-05] MEDS: Isosorbide MONOnitrate (24 HR) 30 MG TAB.ER.24H PO SCH (10:30)
--- NOTE | 2017-07-05 11:34 | Neurology - Consult Note ---
Date of Encounter: 07/05/17 Time of Encounter: 11:28 Assessment and Plan (1) Acute CVA (cerebrovascular accident) Current Visit: Yes Status: Acute Acute left cerebral hemispheric infarct. The infarct is in the left deep white matter. He has several risk factors including hyperlipidemia, hypertension, diabetes mellitus. His blood pressure has been as high as 190s systolic during this admission. I am encouraged that he is not totally flaccid on the right side. I therefore feel that he could recover over time. His rehabilitation therapy might be hindered by his cardiopulmonary status. Currently has 3 vessel coronary artery disease which may hinder his tolerance for intense rehabilitation therapy. I would recommend permissive hypertension over the next 1-2 days and then gradually lower his blood pressure to normal range. Carotid duplex Doppler study is pending. Maintaining statins, antihypertensives , and antiplatelet therapy are paramount. Maintain stroke protocol nursing orders. Further recommendation will be made pending the outcome of the carotid Doppler study. History of Present Illness HPI: Mr. Borges is a 56 year old male admitted to [facility] [place] due to symptoms of shortness of breath. Ultimately diagnosed with congestive heart failure and coronary artery disease heart catheterization revealed 3 vessel coronary artery disease to require coronary artery bypass grafting. 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 Patient apparently developed garbled speech on July 04. CT scan of the brain at that time revealed no acute abnormalities. This garbled speech worsened and on July 05 MRI scan of the brain was obtained and revealed an area of infarct in the left centrum semiovale. No evidence of hemorrhage or mass effect identified. He does maintain some right upper and right lower extremity weakness however is not flaccid. He has had significant blood pressure elevations during his admission. His risk factors include hyperlipidemia hypertension and diabetes mellitus. Echocardiogram was unrevealing. Carotid Doppler study is yet pending. Past Med Surg Social Fam HX - Past Medical History Medical history: coronary artery disease, diabetes, GERD, hyperlipidemia, hypertension, renal disease (CKD, Stage IIIa), other Psychiatric history: no psych history - Past Surgical History Surgical History: orthopedic, other (Right knee arthrotomy with ligament repair) - Social History Smoking Status: Never smoker Smokeless Tobacco Status: No Alcohol use: none Drug use: none - Family History Mother Living Status: Age at : 50 Cause of : growth on heart and lungs Father Living Status: Age at : 55 Cause of : unknown Medications and Allergies Amlodipine Besylate 10 mg PO DAILY 01/23/17 [History] Carvedilol [Coreg] 25 mg PO BID 01/23/17 [History] Glimepiride [Amaryl] 2 mg PO 0800 01/23/17 [History] Metformin HCl [Glucophage] 1,000 mg PO BID 01/23/17 [History] Omeprazole [PriLOSEC] 20 mg PO DAILY 01/23/17 [History] Simvastatin [Zocor] 40 mg PO HS 01/23/17 [History] cloNIDine HCl [Clonidine HCl] 0.2 mg PO TID 01/23/17 [History] Albuterol Sulfate [Ventolin Hfa] 2 puff IH Q4H PRN 06/30/17 [History] Empagliflozin [Jardiance] 25 mg PO DAILY 06/30/17 [History] 3 Allergy/AdvReac Type Severity Reaction Status Date / Time No Known Allergies Allergy Verified 06/30/17 14:06 All Systems: A 10-system review of systems was performed and is negative for pertinent findings except as documented above in the HPI. Review of Systems: 10 point review of systems is consistent with a history of present illness and otherwise negative. Physical Examination - Vital Signs Vital Signs: Initial Vital Signs Temp Pulse Resp BP Pulse Ox 97.8 F 72 16 186/81 96 06/30/17 14:03 06/30/17 14:03 06/30/17 14:03 06/30/17 14:03 06/30/17 14:03 - Neurologic Motor examination - right side: 3/5: deltoids, biceps, triceps, examining officer, hip flexors, tibialis Anterior, quadriceps, plantarflexion Motor examination - left side: 4/5: tibialis Anterior, plantarflexion, 5/5: deltoids, biceps, triceps, hip flexors, examining officer, quadriceps Detailed sensory examination: other (Decreased sensation distally of all modalities.) Reflex and gait examination: other (Gait was not assessed. Deep tendon reflexes are diminished throughout.) Mental Status Examination: awake, alert, oriented to person, oriented to place, oriented to time, follows commands appropriately, answers questions appropriately, no agnosia, no aphasia, no aproxia Cranial nerve examination: PERRL, EOMI, visual avelar intact, corneal reflexes brisk symmetrically, sensory to face intact, mastication intact, no dysarthria, hearing is intact symmetrically, soft palate elevates bilaterally upon phonation , gag reflex intact, flexes SCM and trapezius muscles symmetrically with full power, tongue protrudes midline, no atrophy or facial fasiculations present Results - Laboratory Findings CBC and BMP: 07/05/17 06:21 07/05/17 06:21 Abnormal lab findings: Abnormal lab results Hgb 11.4 g/dL (12.9-16.9) L 07/05/17 06:21 Hct 36.2 % (37.5-50.1) L 07/05/17 06:21 MCH 26.3 pg (28.0-33.3) L 07/05/17 06:21 MCHC 31.5 g/dL (31.6-35.5) L 07/05/17 06:21 Nucleated RBCs/100 WBC 0.3 /100 WBC (0) H 07/02/17 03:58 D-Dimer 1169 ng/mLFEU (0-500) H 06/30/17 14:14 Chloride 111 mEq/L (98-107) H 07/05/17 06:21 Glucose 202 mg/dL (70-105) H 07/05/17 06:21 POC Glucose 212 (58-89) H 07/05/17 07:19 Hemoglobin A1c 8.8 % (-5.6) H 07/01/17 03:06 Calcium 8.1 mg/dL (8.6-10.3) L 07/05/17 06:21 Troponin I 0.04 ng/mL (< 0.04) H* 07/01/17 03:06 B-Natriuretic Peptide 248 pg/mL (Less than 100) H 07/05/17 06:21 Triglycerides 235 mg/dL (< 150) H 07/02/17 03:58 Cholesterol 289 mg/dL (< 200) H 07/02/17 03:58 LDL Cholesterol, Calc 216 mg/dL (0-99) H 07/02/17 03:58 VLDL Cholesterol, Calc 47 mg/dL (< 31) H 07/02/17 03:58 HDL Cholesterol 26 mg/dL (40-59) L 07/02/17 03:58 Cholesterol/HDL Ratio 11.1 (0-4.9) H 07/02/17 03:58 Consult Discharge Plan - Plan Referrals: Yousuf Harrison MD [Primary Care Provider] -
[2017-07-05] MEDS: *HR* Enoxaparin 120 MG/0.8 ML SYRINGE SQ SCH ×2 (12:51→21:40)
[2017-07-05] MEDS: Aspirin Enteric Coated 81 MG Tablet PO SCH (14:16)
[2017-07-06] MEDS: 0.9 % Sodium Chloride 1,000 ML IVC SCH ×3 (07:32→07:35)
[2017-07-06] MEDS: Aspirin Enteric Coated 81 MG Tablet PO SCH (08:22)
[2017-07-06] MEDS: Insulin LISPRO 300 UNITS/3 ML VIAL SQ SCH ×3 (08:22→17:26)
[2017-07-06] MEDS: amLODIPine 5 MG TABLET PO SCH (08:22)
[2017-07-06] MEDS: cloNIDine HCl 0.1 MG TABLET PO SCH ×3 (08:23→20:04)
[2017-07-06] MEDS: Isosorbide MONOnitrate (24 HR) 30 MG TAB.ER.24H PO SCH (08:27)
--- NOTE | 2017-07-06 08:32 | Neurology Progress Note ---
Date of Encounter: 07/06/17 Time of Encounter: 08:28 Assessment and Plan (1) Acute CVA (cerebrovascular accident) Current Visit: Yes Status: Acute At this juncture patient's neurologic deficits have stabilized. His blood pressure still remains quite elevated with 212 systolic this morning. I would like to see that down into at least the 170s for the next day or so and then normalized. Carotid Doppler reveals nonstenotic plaquing in the echocardiogram revealed no evidence of a cardioembolic source. Certainly the issue of his severe coronary artery disease is still improving. The extent to which he will be a good candidate for rehabilitation certainly depends on his ability to tolerate cardiopulmonary exercise. However for now antiplatelet therapy along with statins and antihypertensives are indicated. No further neurologic testing is necessary. I will reevaluate him at your request. Subjective Principal diagnosis: HTN, Tn elevation Interval history: Chart was reviewed, patient was seen and examined. Currently sitting up at bedside eating breakfast. He has no difficulty handling his eating utensils. His is present. He is in no acute distress. He feels that the strength in his right upper and lower extremities is gradually improving. He has no new complaints denies any visual changes, speech difficulty, or headache. His blood pressure this morning however is 212 systolic. His carotid Doppler study reveals nonstenotic plaquing in the echocardiogram reveals no evidence of cardioembolic source. Objective - Constitutional Vitals: Temp Pulse Resp BP Pulse Ox 98.1 F 65 18 192/102 99 07/06/17 06:48 07/06/17 06:48 07/06/17 06:48 07/06/17 07:11 07/06/17 06:48 - Neurological Exam Motor examination - right side: 4/5: deltoids, biceps, triceps, edger saw operator, hip flexors, tibialis Anterior, quadriceps, toe extension (EHL), plantarflexion Motor examination - left side: 4/5: tibialis Anterior, plantarflexion, 5/5: deltoids, biceps, triceps, hip flexors, edger saw operator, quadriceps Sensation intact: Present: other (Decreased sensation distally of all modalities.) Reflex and gait examination: other (Gait was not assessed. Deep tendon reflexes are diminished throughout.) Mental Status Examination: Present: awake, alert, oriented to person, oriented to place, oriented to time, follows commands appropriately, answers questions appropriately, no agnosia, no aphasia, no aproxia Cranial nerve examination: Present: PERRL, EOMI, visual avelar intact, corneal reflexes brisk symmetrically, sensory to face intact, mastication intact, no dysarthria, hearing is intact symmetrically, soft palate elevates bilaterally upon phonation, gag reflex intact, flexes SCM and trapezius muscles symmetrically with full power, tongue protrudes midline, no atrophy or facial fasiculations present Results - Laboratory Findings CBC and BMP: 07/05/17 06:21 07/05/17 06:21 Abnormal lab findings: Abnormal lab results Hgb 11.4 g/dL (12.9-16.9) L 07/05/17 06:21 Hct 36.2 % (37.5-50.1) L 07/05/17 06:21 MCH 26.3 pg (28.0-33.3) L 07/05/17 06:21 MCHC 31.5 g/dL (31.6-35.5) L 07/05/17 06:21 Nucleated RBCs/100 WBC 0.3 /100 WBC (0) H 07/02/17 03:58 D-Dimer 1169 ng/mLFEU (0-500) H 06/30/17 14:14 Chloride 111 mEq/L (98-107) H 07/05/17 06:21 Glucose 202 mg/dL (70-105) H 07/05/17 06:21 POC Glucose 174 (58-89) H 07/06/17 06:49 Hemoglobin A1c 8.8 % (-5.6) H 07/01/17 03:06 Calcium 8.1 mg/dL (8.6-10.3) L 07/05/17 06:21 Troponin I 0.04 ng/mL (< 0.04) H* 07/01/17 03:06 B-Natriuretic Peptide 248 pg/mL (Less than 100) H 07/05/17 06:21 Triglycerides 235 mg/dL (< 150) H 07/02/17 03:58 Cholesterol 289 mg/dL (< 200) H 07/02/17 03:58 LDL Cholesterol, Calc 216 mg/dL (0-99) H 07/02/17 03:58 VLDL Cholesterol, Calc 47 mg/dL (< 31) H 07/02/17 03:58 HDL Cholesterol 26 mg/dL (40-59) L 07/02/17 03:58 Cholesterol/HDL Ratio 11.1 (0-4.9) H 07/02/17 03:58 Consult Discharge Plan - Plan Referrals: Yousuf Harrison MD [Primary Care Provider] -
[2017-07-06] MEDS ORDERED: Aspirin Enteric Coated 81 MG Tablet PO SCH (09:00)
[2017-07-06 12:00] LABS: Basophils % 0.5 %; Eosinophils # 0.2 K/mcL (0.0-0.6); Eosinophils % 2.8 %; Hematocrit 35.2 % (37.5-50.1); Hemoglobin 11.3 g/dL (12.9-16.9); Immature Granulocytes % 0.5 % (0-4); Immature Platelets 6.1 % (1.1-6.1); Lymphocytes # 0.9 K/mcL (0.6-4.6); Lymphocytes % 14.5 %; Mean Corpuscular HGB Conc 32.1 g/dL (31.6-35.5); Mean Corpuscular Volume 84.2 fL (83.0-100.0); Mean Platelet Volume 11.1 fL (9.4-12.4); Monocytes # 0.4 K/mcL (0.0-1.3); Monocytes % 6.2 %; Neutrophils # 4.9 K/mcL (1.6-8.9); Platelet Count 220 K/mcL (140-400); Red Blood Count 4.18 M/mcL (4.19-5.50); Segmented Neutrophils % 75.5 %
[2017-07-06 12:10] LABS: Calcium 7.9 mg/dL (8.6-10.3); Carbon Dioxide 27 mEq/L (23-29); Chloride 107 mEq/L (98-107); Magnesium 1.8 mg/dL (1.6-2.6); Sodium 137 mEq/L (136-145)
[2017-07-06 12:15] LABS: BUN/Creatinine Ratio 11 (6-26); Blood Urea Nitrogen 15 mg/dL (6-20); Glucose 253 mg/dL (70-105); Osmolality,Calculated 293 (280-300); eGFR For African Americans > 60 (> 60); eGFR For Non-African Americans 57 (> 60)
[2017-07-06] MEDS: *HR* Enoxaparin 120 MG/0.8 ML SYRINGE SQ SCH ×2 (12:26→23:30)
[2017-07-06] MEDS ORDERED: Furosemide 20 MG/2 ML VIAL IVP ONE (12:41)
--- NOTE | 2017-07-06 12:45 | Internal Med Progress Note ---
Date of Encounter: 07/06/17 Time of Encounter: 12:42 - Assessment and plan (1) Elevated troponin Current Visit: Yes Status: Acute Assessment and plan: Status post left heart catheterization with plan as below. (2) Abnormal stress test Current Visit: Yes Status: Acute Assessment and plan: Status post left heart catheterization with three-vessel disease noted. I spoke to Dr. Reinaldo Vegas (cardiothoracic surgeon) from [facility] and the plan is as below. (3) CAD (coronary artery disease) Current Visit: Yes Status: Acute Assessment and plan: Has multivessel disease. The patient would need to be operated on with a bloodless medicine team around. Spoke to Dr. Reinaldo Vegas from [facility] to set up transfer if possible. Dr. Vegas stated that the patient is not a candidate for CABG for at least two weeks due to acute DVT and acute CVA. He will need to be set up with outpatient follow-up with Dr. Vegas as Dr. Clay from our cardiothroacic's team stated to me that he doesnt feel comfortable taking the risk of operating on a patient who was hesitant with blood transfusion due to christian beliefs. In the meantime the patient is on proper cardiac meds here. Once his blood pressure and CHF issues are resolved, he may possibly be discharged home or to rehabilitation depending on PTs recommendations Qualifiers: Coronary Disease-Associated Artery/Lesion type: [place] artery [place] vs. transplanted heart: [place] heart Associated angina: with other forms of angina Qualified Code(s): I25.118 - Atherosclerotic heart disease of [place] coronary artery with other forms of angina pectoris (4) Acute CVA (cerebrovascular accident) Current Visit: Yes Status: Acute Assessment and plan: Found to have an acute infarct on MRI brain. Appreciate neurology's help. The patient is on aspirin and statin. Carotid duplex with no significant disease. Echocardiogram could not rule out PFO. He does have lower extremity DVT. He is on Lovenox therapeutic dose. We will work on better blood pressure control today. PT and OT. A1c and lipid panel noted. (5) Acute renal failure Current Visit: Yes Status: Acute Assessment and plan: This has been stable around 1.2-1.3 since admission. I did give him Lasix 40 mg IV yesterday. I will give him another dose of 20 mg IV today. We will check labs in the morning. Qualifiers: Acute renal failure type: unspecified Qualified Code(s): N17.9 - Acute kidney failure, unspecified (6) Acute exacerbation of CHF (congestive heart failure) Current Visit: Yes Status: Acute Assessment and plan: Likely an exacerbation of diastolic heart failure. He is looking much better this morning. He mentions on 1-2 L of nasal cannula oxygen. He does have some ankle edema. We will give another dose 20 mg IV Lasix today. I did give him 40 mg IV yesterday with good urine output. Continue with beta pallavi. Patient is also on aspirin. Needs better blood pressure control. Qualifiers: Heart failure type: diastolic Qualified Code(s): I50.33 - Acute on chronic diastolic (congestive) heart failure (7) Diabetes mellitus Current Visit: Yes Status: Acute Assessment and plan: A1C 8.8 . Continue insulin sliding scale. Continue Accu-Cheks. Qualifiers: Diabetes mellitus type: type 2 Diabetes mellitus complication status: without complication Diabetes mellitus fdc insulin use: without terminal superintendent use Qualified Code(s): E11.9 - Type 2 diabetes mellitus without complications (8) HTN (hypertension) Current Visit: Yes Status: Acute Assessment and plan: The pressure is elevated. It is improving. Continue with Norvasc 10 mg daily, continue clonidine 0.3 mg 3 times a day. Continue with Coreg 25 mg twice a day. lisinopril 10 mg. Heart rate remains in the 50s. He is also on Imdur. Hydralazine IV when necessary. Qualifiers: Hypertension type: essential hypertension Qualified Code(s): I10 - Essential (primary) hypertension (9) DVT (deep venous thrombosis) Current Visit: Yes Status: Acute Assessment and plan: Confirmed on official report. Patient is on Lovenox 120 mg subcutaneous twice a day. Qualifiers: DVT location: lower extremity Affected thrombotic vein of extremity: unspecified vein of extremity Chronicity: unspecified Laterality: unspecified laterality Qualified Code(s): I82.409 - Acute embolism and thrombosis of unspecified deep veins of unspecified lower extremity (10) HLD (hyperlipidemia) Current Visit: Yes Status: Acute Assessment and plan: Statin has been increased to maximum dose of 80 mg of atorvastatin. Patient's LDL is noted to be 216. Qualifiers: Hyperlipidemia type: unspecified Qualified Code(s): E78.5 - Hyperlipidemia , unspecified (11) DVT prophylaxis Current Visit: Yes Status: Acute Assessment and plan: On therapeutic Lovenox. - Subjective Interval history: Patient was seen and examined. Afebrile. Denies chest pain. Diuresed well with 40 mg of IV Lasix yesterday. He is down to about 1-2 L of nasal cannula oxygen. Patient had elevated blood pressure in the 190s systolically this morning with a diastolic over 108. He was seen by neurology. His and the patient feels that his garbled speech is improved. He has no other weaknesses or sensory deficits. Underwent left heart catheterization which showed three- vessel disease and was recommended a CABG. was seen by cardiothoracic's and apparently the patient is a Zoroastrian and cardiothoracic physician was told that the patient would not accept blood. This is not what the patient was telling me yesterday. His is actually the one who was against the blood but not the patient. I spoke to his and she said it is up to the patient to decide on whether he will receive blood or not. She is okay with his decision. I expressed this to the cardiothoracic's doctor who is not willing to operate on the patient in our facility and is recommending transfer still. The patient's blood pressure is elevated with systolic in the 170s. Remains on room air. He was admitted initially with an acute exacerbation of diastolic heart failure. Patient has had an abnormal stress test back in March 2017 for which she refused left heart catheterization. Stay is complicated by an elevation in creatinine. - Constitutional Vitals: Temp Pulse Resp BP Pulse Ox 98.1 F 50 20 138/73 97 07/06/17 11:16 07/06/17 11:16 07/06/17 11:16 07/06/17 11:16 07/06/17 11:16 General appearance: Present: A&O X 3, no acute distress, obese, answers questions appropriately Exam: GEN: Not in acute distress. CVS: RRR. S1, S2, No m/r/g RESP: CTAB ABD: Soft, NT, ND, +BS EXT: 1+ edema. 2+ DP. No rashes NEURO: The patient is having expressive aphasia but improved. He is not able to get words out at all. He has no other neurological deficits Internal Medicine: Result - Labs CBC & Chem 7: 07/06/17 11:49 07/06/17 11:49 Labs: Short CBC 07/06/17 Range/Units 11:49 WBC 6.4 (4.3-11.1) K/mcL Hgb 11.3 L (12.9-16.9) g/dL Hct 35.2 L (37.5-50.1) % Plt Count 220 (140-400) K/mcL Neutrophils # 4.9 (1.6-8.9) K/mcL BMP 07/06/17 11:49 Sodium 137 Potassium 4.0 Chloride 107 Carbon Dioxide 27 BUN 15 Creatinine 1.32 H Glucose 253 H Calcium 7.9 L - ABG Interpretation ABG results: PT/INR, D-dimer D-Dimer 1169 ng/mLFEU (0-500) H 06/30/17 14:14 - Impressions Impressions Echocardiogram 07/05/17 13:01 Impressions: Technically sub-optimal due to body habitus. LVEF 60%. Normal LV chamber size and function. Moderate concentric left ventricular hypertrophy. Moderate left ventricular diastolic dysfunction. Normal right ventricular structure and function. Agitated saline given, but image quality inadequate to evaluate for intracardiac shunting. Mildly thickened mitral valve leaflets. Moderate mitral stenosis suggested by Doppler. Mean gradient 6-9 mmHg (HR 60s). No evidence of pulmonary hypertension identifed on this study. RVSP was not well obtained. Left Ventricular Wall Motion: Rest Echo Findings All wall segments showed normal motion. Findings: Study Quality * Technically sub-optimal due to body habitus. ECG Findings * Normal sinus rhythm. Left Ventricle * LVEF 60%. * Normal LV chamber size and function. * Moderate concentric left ventricular hypertrophy. * Moderate left ventricular diastolic dysfunction. Right Ventricle * Normal right ventricular structure and function. Left Atrium * Moderate to severely dilated left atrium. Right Atrium * Mild to moderately dilated right atrium. Interatrial Septum * Agitated saline given, but image quality inadequate to evaluate for intracardiac shunting. Aortic Valve * Aortic valve not well visualized. * No aortic stenosis. * No aortic regurgitation. Mitral Valve * Mildly thickened mitral valve leaflets. * Trace mitral regurgitation. * Moderate mitral stenosis suggested by Doppler. Mean gradient 6-9 mmHg (HR 60s). Tricuspid Valve * Normal tricuspid valve structure and function. * Trace tricuspid regurgitation. * No evidence of pulmonary hypertension identifed on this study. RVSP was not well obtained. Pulmonic Valve * Pulmonic valve not well visualized. Aorta * Normally sized aortic root. Pericardium * The pericardium appears normal. IVC * Normal IVC dimensions and inspiratory collapse. Pulmonary Artery * Normal visualized portions of the main pulmonary artery. Consult Discharge Plan - Plan Referrals: Yousuf Harrison MD [Primary Care Provider] -
[2017-07-07] MEDS ORDERED: Nitroglycerin 1 INCH/GM PACKET TP ONE (05:27)
[2017-07-07 06:10] LABS: Basophils # 0.1 K/mcL (0.0-0.2); Basophils % 0.7 %; Eosinophils # 0.2 K/mcL (0.0-0.6); Eosinophils % 2.7 %; Hematocrit 38.2 % (37.5-50.1); Hemoglobin 12.4 g/dL (12.9-16.9); Immature Granulocytes % 0.7 % (0-4); Lymphocytes # 1.3 K/mcL (0.6-4.6); Lymphocytes % 19.1 %; Mean Corpuscular HGB Conc 32.5 g/dL (31.6-35.5); Mean Corpuscular Hemoglobin 26.6 pg (28.0-33.3); Mean Platelet Volume 11.5 fL (9.4-12.4); Monocytes # 0.4 K/mcL (0.0-1.3); Monocytes % 5.8 %; Platelet Count 228 K/mcL (140-400); Red Blood Count 4.66 M/mcL (4.19-5.50)
[2017-07-07 06:33] LABS: BUN/Creatinine Ratio 15 (6-26); Blood Urea Nitrogen 18 mg/dL (6-20); Calcium 8.2 mg/dL (8.6-10.3); Carbon Dioxide 24 mEq/L (23-29); Chloride 108 mEq/L (98-107); Glucose 187 mg/dL (70-105); Osmolality,Calculated 297 (280-300); Potassium 3.4 mEq/L (3.5-5.1); Sodium 140 mEq/L (136-145); eGFR For African Americans > 60 (> 60); eGFR For Non-African Americans > 60 (> 60)
[2017-07-07] MEDS: Insulin LISPRO 300 UNITS/3 ML VIAL SQ SCH ×3 (08:01→16:46)
[2017-07-07] MEDS: cloNIDine HCl 0.1 MG TABLET PO SCH ×3 (08:50→23:22)
[2017-07-07] MEDS: Aspirin Enteric Coated 81 MG Tablet PO SCH (08:50)
[2017-07-07] MEDS: Isosorbide MONOnitrate (24 HR) 30 MG TAB.ER.24H PO SCH (08:51)
[2017-07-07] MEDS: amLODIPine 5 MG TABLET PO SCH (08:51)
[2017-07-07] MEDS: *HR* Enoxaparin 120 MG/0.8 ML SYRINGE SQ SCH ×2 (10:50→23:23)
--- NOTE | 2017-07-07 11:05 | Internal Med Progress Note ---
Date of Encounter: 07/07/17 Time of Encounter: 11:06 - Assessment and plan (1) Acute CVA (cerebrovascular accident) Current Visit: Yes Status: Acute Assessment and plan: Found to have an acute infarct on MRI brain. Appreciate neurology's help. The patient is on aspirin and statin. Carotid duplex with no significant disease. Echocardiogram could not rule out PFO. He does have lower extremity DVT. He is on Lovenox therapeutic dose. A1c and lipid panel noted. PTOT eval pending (2) Acute exacerbation of CHF (congestive heart failure) Current Visit: Yes Status: Acute Assessment and plan: Likely an exacerbation of diastolic heart failure. He is looking much better this morning. He mentions on 1-2 L of nasal cannula oxygen. HE still has pedal edema Lasix was held due to elevated creatinine We will give him po lasix from today continue to monitor I/Os, daily weight Qualifiers: Heart failure type: diastolic Qualified Code(s): I50.33 - Acute on chronic diastolic (congestive) heart failure (3) Acute renal failure Current Visit: Yes Status: Resolved Assessment and plan: Cr 1.18 from 1.32 yesterday Continue to monitor Qualifiers: Acute renal failure type: unspecified Qualified Code(s): N17.9 - Acute kidney failure, unspecified (4) CAD (coronary artery disease) Current Visit: Yes Status: Acute Assessment and plan: Has multivessel disease. The patient would need to be operated on with a bloodless medicine team around. Spoke to Dr. Reinaldo Vegas from [facility] to set up transfer if possible. Dr. Vegas stated that the patient is not a candidate for CABG for at least two weeks due to acute DVT and acute CVA. He will need to be set up with outpatient follow-up with Dr. Vegas as Dr. Clay from our cardiothroacic's team stated to me that he doesnt feel comfortable taking the risk of operating on a patient who was hesitant with blood transfusion due to religion beliefs. In the meantime the patient is on proper cardiac meds here. Once his blood pressure and CHF issues are resolved, he may possibly be discharged to SNF PTOT eval is pending After d/c from [facility], he may pursue treatment of his CAD at [place] Qualifiers: Coronary Disease-Associated Artery/Lesion type: [place] artery [place] vs. transplanted heart: [place] heart Associated angina: with other forms of angina Qualified Code(s): I25.118 - Atherosclerotic heart disease of [place] coronary artery with other forms of angina pectoris (5) DVT (deep venous thrombosis) Current Visit: Yes Status: Acute Assessment and plan: Confirmed on official report. Patient is on Lovenox 120 mg subcutaneous twice a day. Bridge with coumadin, monitor INR Qualifiers: DVT location: lower extremity Affected thrombotic vein of extremity: unspecified vein of extremity Chronicity: unspecified Laterality: unspecified laterality Qualified Code(s): I82.409 - Acute embolism and thrombosis of unspecified deep veins of unspecified lower extremity (6) Diabetes mellitus Current Visit: Yes Status: Chronic Assessment and plan: A1C 8.8 . Continue insulin sliding scale. Continue Accu-Cheks. 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 Patient's LDL is noted to be 216. Qualifiers: Hyperlipidemia type: unspecified Qualified Code(s): E78.5 - Hyperlipidemia , unspecified (8) HTN (hypertension) Current Visit: Yes Status: Chronic Assessment and plan: TSlowly improving, * Continue with Norvasc 10 mg daily, *continue clonidine 0.3 mg 3 times a day. Hold coreg due to bradycardia, continue lisinopril 10 mg, increase to BID, we will restart coreg at a lower dose due to his CAD *continue Imdur, increase pen, continue hydralazine *also started on lasix today po Qualifiers: Hypertension type: essential hypertension Qualified Code(s): I10 - Essential (primary) hypertension - Subjective Interval history: 56 M Seen and evaluated at bedside Patient was admitted on the managed for acute kidney injury, acute CHF exacerbation, acute ischemic CVA, coronary artery disease with abnormal stress test on the left troponins. He also has an acute fenestra embassies and is on anticoagulation. The patient is region precludes him from going blood transfusion, hence his management of his coronary artery disease which requires CABG which has been difficult. Spine Dr. Clay He has residual dysarthira and RLE paresis He denies new complains POT eval is pending We will start him on warfarin tonight - Constitutional Vitals: Temp Pulse Resp BP Pulse Ox 98.3 F 65 17 166/73 96 07/07/17 07:31 07/07/17 07:31 07/07/17 07:31 07/07/17 07:31 07/07/17 07:31 General appearance: Present: A&O X 3, no acute distress, obese, answers questions appropriately - Head Head exam: Present: atraumatic, normocephalic - Eye Eye exam: Present: PERRL, conjuntiva pink, sclera anicteric Pupils: Present: PERRL - Neck Neck exam general surgery: Present: supple, trachea midline. Absent: lymphadenopathy - Respiratory Respiratory exam: Present: CTAB. Absent: accessory muscle use, rales, rhonchi, wheezes - Cardiovascular Cardiovascular exam: Present: RRR, +S1, +S2. Absent: diastolic murmur, gallop, rubs, systolic murmur - GI/Abdominal GI/Abdominal exam: Present: normal bowel sounds, soft, no peritoneal signs. Absent: distended, tenderness - Extremities Exam Extremities exam: Present: pedal edema - Neurological Exam Neurological exam: Present: alert, motor sensory deficit (RLE paresis), oriented X3, speech deficit (dysarthric). Absent: strengths equal and symetr throughout - Skin Skin exam: Present: dry, intact Internal Medicine: Result - Labs CBC & Chem 7: 07/07/17 05:30 07/07/17 05:30 Labs: Short CBC 07/06/17 07/07/17 Range/Units 11:49 05:30 WBC 6.4 7.0 (4.3-11.1) K/mcL Hgb 11.3 L 12.4 L (12.9-16.9) g/dL Hct 35.2 L 38.2 (37.5-50.1) % Plt Count 220 228 (140-400) K/mcL Neutrophils # 4.9 5.0 (1.6-8.9) K/mcL BMP 07/06/17 07/07/17 11:49 05:30 Sodium 137 140 Potassium 4.0 3.4 L Chloride 107 108 H Carbon Dioxide 27 24 BUN 15 18 Creatinine 1.32 H 1.18 Glucose 253 H 187 H Calcium 7.9 L 8.2 L - ABG Interpretation ABG results: PT/INR, D-dimer D-Dimer 1169 ng/mLFEU (0-500) H 06/30/17 14:14 Consult Discharge Plan - Plan Referrals: Yousuf Harrison MD [Primary Care Provider] -
[2017-07-07 15:51] LABS: INR 1.1; Prothrombin Time 11.6 Seconds (9.4-12.1)
[2017-07-07] MEDS: Furosemide 40 MG TABLET PO SCH (16:44)
[2017-07-07] MEDS ORDERED: Warfarin perPT PO PRN (18:00)
[2017-07-07] MEDS ORDERED: *HR* Warfarin 7.5 MG TABLET PO ONE (18:00)
[2017-07-08 05:09] LABS: Basophils % 0.6 %; Eosinophils # 0.2 K/mcL (0.0-0.6); Eosinophils % 2.6 %; Hematocrit 36.8 % (37.5-50.1); Hemoglobin 11.9 g/dL (12.9-16.9); Immature Granulocytes % 0.7 % (0-4); Lymphocytes # 1.3 K/mcL (0.6-4.6); Lymphocytes % 18.4 %; Mean Corpuscular HGB Conc 32.3 g/dL (31.6-35.5); Mean Corpuscular Hemoglobin 26.6 pg (28.0-33.3); Mean Corpuscular Volume 82.1 fL (83.0-100.0); Mean Platelet Volume 11.7 fL (9.4-12.4); Monocytes # 0.5 K/mcL (0.0-1.3); Monocytes % 6.7 %; Neutrophils # 5.1 K/mcL (1.6-8.9); Platelet Count 228 K/mcL (140-400); Red Blood Count 4.48 M/mcL (4.19-5.50); Red Cell Distribution Width 14.1 % (11.5-14.5)
[2017-07-08 05:21] LABS: INR 1.1; Prothrombin Time 12.3 Seconds (9.4-12.1)
[2017-07-08 05:28] LABS: BUN/Creatinine Ratio 15 (6-26); Blood Urea Nitrogen 18 mg/dL (6-20); Calcium 8.3 mg/dL (8.6-10.3); Carbon Dioxide 26 mEq/L (23-29); Chloride 108 mEq/L (98-107); Glucose 207 mg/dL (70-105); Osmolality,Calculated 298 (280-300); Potassium 3.4 mEq/L (3.5-5.1); Sodium 140 mEq/L (136-145); eGFR For African Americans > 60 (> 60); eGFR For Non-African Americans > 60 (> 60)
[2017-07-08] MEDS: cloNIDine HCl 0.1 MG TABLET PO SCH ×3 (08:34→20:23)
[2017-07-08] MEDS: Isosorbide MONOnitrate (24 HR) 60 MG TAB.ER.24H PO SCH (08:34)
[2017-07-08] MEDS: Aspirin Enteric Coated 81 MG Tablet PO SCH (08:34)
[2017-07-08] MEDS: Furosemide 40 MG TABLET PO SCH (08:34)
[2017-07-08] MEDS: amLODIPine 5 MG TABLET PO SCH (08:34)
[2017-07-08] MEDS: Lisinopril 20 MG TABLET PO SCH ×2 (08:34→20:23)
[2017-07-08] MEDS: *HR* Enoxaparin 120 MG/0.8 ML SYRINGE SQ SCH ×2 (08:34→20:24)
[2017-07-08] MEDS: Insulin LISPRO 300 UNITS/3 ML VIAL SQ SCH ×6 (08:37→16:14)
[2017-07-08] MEDS: Insulin DETEMIR 100 UNIT/ML X5UNITS SQ SCH ×2 (08:42→20:23)
--- NOTE | 2017-07-08 11:45 | Internal Med Progress Note ---
Date of Encounter: 07/08/17 Time of Encounter: 11:45 - Assessment and plan (1) Acute CVA (cerebrovascular accident) Current Visit: Yes Status: Acute Assessment and plan: Found to have an acute infarct on MRI brain. Appreciate neurology's help. The patient is on aspirin and statin. Carotid duplex with no significant disease. Echocardiogram could not rule out PFO. He does have lower extremity DVT. He is on Lovenox therapeutic dose. A1c and lipid panel noted. PTOT eval noted-for inpatient rehab, swing bed (2) Acute exacerbation of CHF (congestive heart failure) Current Visit: Yes Status: Acute Assessment and plan: Likely an exacerbation of diastolic heart failure. He is looking much better this morning. He mentions on 1-2 L of nasal cannula oxygen. HE still has pedal edema Lasix was held due to elevated creatinine continue po lasix,renal function has been stable continue to monitor I/Os, daily weight Qualifiers: Heart failure type: diastolic Qualified Code(s): I50.33 - Acute on chronic diastolic (congestive) heart failure (3) Acute renal failure Current Visit: Yes Status: Resolved Assessment and plan: Cr stable Continue to monitor Qualifiers: Acute renal failure type: unspecified Qualified Code(s): N17.9 - Acute kidney failure, unspecified (4) CAD (coronary artery disease) Current Visit: Yes Status: Chronic Assessment and plan: Has multi-vessel disease. The patient would need to be operated on with a bloodless medicine team around. Spoke to Dr. Reinaldo Vegas from [facility] to set up transfer if possible. Dr. Vegas stated that the patient is not a candidate for CABG for at least two weeks due to acute DVT and acute CVA. He will need to be set up with outpatient follow-up with Dr. Vegas as Dr. Clay from our cardiothroacic's team stated to me that he doesn' t feel comfortable taking the risk of operating on a patient who was hesitant with blood transfusion due to spiritism beliefs. In the meantime the patient is on proper cardiac meds here. Once his blood pressure and CHF issues are resolved, he may possibly be discharged to SNF PTOT eval noted After d/c from [facility], he may pursue treatment of his CAD at [place] Qualifiers: Coronary Disease-Associated Artery/Lesion type: [place] artery [place] vs. transplanted heart: [place] heart Associated angina: with other forms of angina Qualified Code(s): I25.118 - Atherosclerotic heart disease of [place] coronary artery with other forms of angina pectoris (5) DVT (deep venous thrombosis) Current Visit: Yes Status: Acute Assessment and plan: Confirmed on official report. continue therapeutic lovenox with warfarin, monitor INR Qualifiers: DVT location: lower extremity Affected thrombotic vein of extremity: unspecified vein of extremity Chronicity: unspecified Laterality: unspecified laterality Qualified Code(s): I82.409 - Acute embolism and thrombosis of unspecified deep veins of unspecified lower extremity (6) Diabetes mellitus Current Visit: Yes Status: Chronic Assessment and plan: A1C 8.8 . 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 Patient's LDL is noted to be 216. Qualifiers: Hyperlipidemia type: unspecified Qualified Code(s): E78.5 - Hyperlipidemia , unspecified (8) HTN (hypertension) Current Visit: Yes Status: Chronic Assessment and plan: Uncontrolled, but improving * Continue with Norvasc 10 mg daily *continue clonidine 0.3 mg 3 times a day. *Continue coreg at a lower dose 12.5mg BIDWM *Increase lisinopril to 20mg BID *Increase Imdur to 60mg from 30mg *continue lasix po Qualifiers: Hypertension type: essential hypertension Qualified Code(s): I10 - Essential (primary) hypertension - Subjective Interval history: 56 M Seen and evaluated at bedside Patient was admitted on the managed for acute kidney injury, acute CHF exacerbation, acute ischemic CVA, coronary artery disease with abnormal stress test , triple vessel CAD He also has an acute DVT and is on anticoagulation The patient's mu-ism precludes him from going blood transfusion or any blood products, hence his management of his coronary artery disease which requires CABG which has been difficult. Patient has been recommended to go to [facility] where he can get a CABG in the near future He is seen with his at the bedside this morning, no new complains PTOT eval noted - Constitutional Vitals: Temp Pulse Resp BP Pulse Ox 98 F 61 15 133/67 94 07/08/17 11:29 07/08/17 11:29 07/08/17 11:29 07/08/17 11:29 07/08/17 11:29 General appearance: Present: A&O X 3, no acute distress, obese, answers questions appropriately - Head Head exam: Present: atraumatic, normocephalic - Eye Eye exam: Present: PERRL, conjuntiva pink, sclera anicteric Pupils: Present: PERRL - Neck Neck exam general surgery: Present: supple, trachea midline. Absent: lymphadenopathy - Respiratory Respiratory exam: Present: CTAB. Absent: accessory muscle use, rales, rhonchi, wheezes - Cardiovascular Cardiovascular exam: Present: RRR, +S1, +S2. Absent: diastolic murmur, gallop, rubs, systolic murmur - GI/Abdominal GI/Abdominal exam: Present: normal bowel sounds, soft, no peritoneal signs. Absent: distended, tenderness - Extremities Exam Extremities exam: Present: pedal edema (1+ bilateral piting pedal edema) - Neurological Exam Neurological exam: Present: alert, CN II-XII intact, motor sensory deficit (RLE paresis), oriented X3, speech deficit (residual dysarthria). Absent: no focal deficits, strengths equal and symetr throughout, pronater drift, facial droop - Skin Skin exam: Present: dry, intact Internal Medicine: Result - Labs CBC & Chem 7: 07/08/17 04:25 07/08/17 04:25 Labs: Short CBC 07/08/17 Range/Units 04:25 WBC 7.2 (4.3-11.1) K/mcL Hgb 11.9 L (12.9-16.9) g/dL Hct 36.8 L (37.5-50.1) % Plt Count 228 (140-400) K/mcL Neutrophils # 5.1 (1.6-8.9) K/mcL BMP 07/08/17 04:25 Sodium 140 Potassium 3.4 L Chloride 108 H Carbon Dioxide 26 BUN 18 Creatinine 1.21 Glucose 207 H Calcium 8.3 L - ABG Interpretation ABG results: PT/INR, D-dimer PT 12.3 Seconds (9.4-12.1) H 07/08/17 04:25 D-Dimer 1169 ng/mLFEU (0-500) H 06/30/17 14:14 Consult Discharge Plan - Plan Instructions: Heart Failure (DC), Acute Kidney Injury (DC), Diabetes Mellitus Type 2 in Adults (DC), Ischemic Stroke (DC), Ischemic Stroke (GEN), Chronic Hypertension (DC), Ischemic Stroke, Dynamometer Tuner (GEN) Referrals: Yousuf Harrison MD [Primary Care Provider] -
[2017-07-08] MEDS ORDERED: *HR* Warfarin 5 MG TABLET PO SCH (18:00)
[2017-07-09 03:38] LABS: Basophils % 0.5 %; Eosinophils # 0.2 K/mcL (0.0-0.6); Eosinophils % 3.3 %; Hematocrit 33.8 % (37.5-50.1); Hemoglobin 10.9 g/dL (12.9-16.9); Immature Granulocytes % 0.6 % (0-4); Lymphocytes # 1.4 K/mcL (0.6-4.6); Lymphocytes % 21.4 %; Mean Corpuscular HGB Conc 32.2 g/dL (31.6-35.5); Mean Corpuscular Hemoglobin 26.9 pg (28.0-33.3); Mean Corpuscular Volume 83.5 fL (83.0-100.0); Mean Platelet Volume 11.2 fL (9.4-12.4); Monocytes # 0.4 K/mcL (0.0-1.3); Monocytes % 6.3 %; Neutrophils # 4.3 K/mcL (1.6-8.9); Platelet Count 212 K/mcL (140-400); Red Blood Count 4.05 M/mcL (4.19-5.50); Red Cell Distribution Width 14.1 % (11.5-14.5); Segmented Neutrophils % 67.9 %
--- NOTE | 2017-07-09 03:40 | Event Note ---
Date of Encounter: 07/09/17 Time of Encounter: 03:34 56 year old man with recent left MCA territory ischemic stroke with left hemiplegia reportedly worse now. He also has an acute VTE and was started on a therapeutic dose of Lovenox. He's being sent for a stat CT head without contrast to r/o hemorrhagic transformation of his infarct. Results are pending.
[2017-07-09 03:45] LABS: INR 1.2; Prothrombin Time 12.7 Seconds (9.4-12.1)
[2017-07-09 03:58] LABS: BUN/Creatinine Ratio 14 (6-26); Blood Urea Nitrogen 18 mg/dL (6-20); Calcium 8.3 mg/dL (8.6-10.3); Carbon Dioxide 27 mEq/L (23-29); Chloride 110 mEq/L (98-107); Glucose 142 mg/dL (70-105); Osmolality,Calculated 298 (280-300); Potassium 3.6 mEq/L (3.5-5.1); Sodium 142 mEq/L (136-145); eGFR For African Americans > 60 (> 60); eGFR For Non-African Americans 58 (> 60)
[2017-07-09] MEDS: Furosemide 40 MG TABLET PO SCH (08:34)
[2017-07-09] MEDS: Aspirin Enteric Coated 81 MG Tablet PO SCH (08:34)
[2017-07-09] MEDS: amLODIPine 5 MG TABLET PO SCH (08:35)
[2017-07-09] MEDS: cloNIDine HCl 0.1 MG TABLET PO SCH (08:35)
[2017-07-09] MEDS: Lisinopril 20 MG TABLET PO SCH (08:35)
[2017-07-09] MEDS: *HR* Enoxaparin 120 MG/0.8 ML SYRINGE SQ SCH (08:35)
[2017-07-09] MEDS: Isosorbide MONOnitrate (24 HR) 60 MG TAB.ER.24H PO SCH (08:43)
[2017-07-09] MEDS: Insulin LISPRO 300 UNITS/3 ML VIAL SQ SCH ×4 (08:45→14:05)
[2017-07-09] MEDS: Insulin DETEMIR 100 UNIT/ML X5UNITS SQ SCH (08:46)
[2017-07-09] MEDS ORDERED: hydrALAZINE 25 MG TABLET PO SCH (09:00)
[2017-07-09] MEDS ORDERED: *HR* Dextrose 50 % in Water (Syg) 50 ML SYRINGE ONE (09:54)
[2017-07-09] MEDS ORDERED: *HR* Atropine Sulfate 1 MG/10 ML SYRINGE ONE (09:57)
[2017-07-09] MEDS ORDERED: *HR* Atropine Sulfate 1 MG/10 ML SYRINGE IVP ONE (09:58)
[2017-07-09] MEDS ORDERED: *HR* Dextrose 50 % in Water (Syg) 50 ML SYRINGE IVP ONE (09:59)
--- NOTE | 2017-07-09 10:09 | Internal Med Progress Note ---
Date of Encounter: 07/09/17 Time of Encounter: 10:08 - Assessment and plan (1) Acute CVA (cerebrovascular accident) Current Visit: Yes Status: Acute (2) Acute exacerbation of CHF (congestive heart failure) Current Visit: Yes Status: Acute Qualifiers: Heart failure type: diastolic Qualified Code(s): I50.33 - Acute on chronic diastolic (congestive) heart failure (3) Acute renal failure Current Visit: Yes Status: Resolved Qualifiers: Acute renal failure type: unspecified Qualified Code(s): N17.9 - Acute kidney failure, unspecified (4) CAD (coronary artery disease) Current Visit: Yes Status: Chronic Qualifiers: Coronary Disease-Associated Artery/Lesion type: [place] artery [place] vs. transplanted heart: [place] heart Associated angina: with other forms of angina Qualified Code(s): I25.118 - Atherosclerotic heart disease of [place] coronary artery with other forms of angina pectoris (5) DVT (deep venous thrombosis) Current Visit: Yes Status: Acute Qualifiers: DVT location: lower extremity Affected thrombotic vein of extremity: unspecified vein of extremity Chronicity: unspecified Laterality: unspecified laterality Qualified Code(s): I82.409 - Acute embolism and thrombosis of unspecified deep veins of unspecified lower extremity (6) Diabetes mellitus Current Visit: Yes Status: Chronic Qualifiers: Diabetes mellitus type: type 2 Diabetes mellitus complication status: without complication Diabetes mellitus mcc insulin use: without mcc use Qualified Code(s): E11.9 - Type 2 diabetes mellitus without complications (7) HLD (hyperlipidemia) Current Visit: Yes Status: Chronic Qualifiers: Hyperlipidemia type: unspecified Qualified Code(s): E78.5 - Hyperlipidemia , unspecified (8) HTN (hypertension) Current Visit: Yes Status: Chronic Qualifiers: Hypertension type: essential hypertension Qualified Code(s): I10 - Essential (primary) hypertension - Subjective Interval history: 56 M Patient was admitted and being managed for acute kidney injury, acute CHF exacerbation, acute ischemic CVA, coronary artery disease with abnormal stress test , triple vessel CAD He also has an acute DVT and is on anticoagulationThe patient's hinduism precludes him from going blood transfusion or any blood products, hence his management of his coronary artery disease which requires CABG which has been difficult. Patient has been recommended to go to [facility] where he can get a CABG in the near future Attention drawn to the bedside by his who met me on the white way and stated her was unresponsive Upon entering the room, the patient was sitting up in the chair, responsive to sternal rub only, the nurses and I put him on the bed. He had recently been started on insulin for blood glucose control, and his blood pressure had been uncontrolled Overnight, the RN noted worsening RLE weakness and speech and the night MD had ordered a repeat Head CT ON exam, patient is drowsy but rousable ot sternal rub, bradycardic, HR in the 90s and hypoxic to 89% on room air, Blood pressure was 125/64, FS was 155. Patient had chunks of ufood in his mouth and phraynx which were sunctioned and manually removed by the RN His speech is worse compared to my evaluation yesterday 07/08. His chest is clear to auscultation anteriorly HS S1, S2 bradycardic Abdomen is soft and obese, not tender, he has 1+ piting pedal edema bilaterally Skin is clammy and diaphoretic He was placed on non-rebreather mask and O2 improved to 100% rapidly, patient also received atropine 0.25mg stat anfd HR remained stable between 49-60. Blood pressure has been stable STAT CXR reviewed by me pending repot shows RLL infitrates, suspect aspiration Repeat Head CT is pending, patient is on anticoagulation for a DVT We will also place the patient NPO except medications, repeat Speech and Neuro eval, continue neurochecks q4h Patient is awake,alert and oriented and responded appropriately to these measures - Constitutional Vitals: Temp Pulse Resp BP Pulse Ox 98.4 F 56 16 199/85 94 07/09/17 07:26 07/09/17 07:26 07/09/17 07:26 07/09/17 07:26 07/09/17 07:26 General appearance: Present: A&O X 3, no acute distress, obese, answers questions appropriately Internal Medicine: Result - Labs CBC & Chem 7: 07/09/17 03:12 07/09/17 03:12 Labs: Short CBC 07/09/17 Range/Units 03:12 WBC 6.4 (4.3-11.1) K/mcL Hgb 10.9 L (12.9-16.9) g/dL Hct 33.8 L (37.5-50.1) % Plt Count 212 (140-400) K/mcL Neutrophils # 4.3 (1.6-8.9) K/mcL BMP 07/09/17 03:12 Sodium 142 Potassium 3.6 Chloride 110 H Carbon Dioxide 27 BUN 18 Creatinine 1.30 Glucose 142 H Calcium 8.3 L - ABG Interpretation ABG results: PT/INR, D-dimer PT 12.7 Seconds (9.4-12.1) H 07/09/17 03:12 D-Dimer 1169 ng/mLFEU (0-500) H 06/30/17 14:14 - Impressions Impressions Head CT 07/09/17 03:23 IMPRESSION: Increased conspicuity of the recent ischemia in the left internal capsule and simms radiata without acute hemorrhage or mass effect. No definite new ischemic changes are seen. D/ / Juan Jones MD / Juan Jones MD Interpreting Provider: Juan Jones MD Consult Discharge Plan - Plan Instructions: Heart Failure (DC), Acute Kidney Injury (DC), Diabetes Mellitus Type 2 in Adults (DC), Ischemic Stroke (DC), Ischemic Stroke (GEN), Chronic Hypertension (DC), Ischemic Stroke, Property Preservation Specialist (GEN) Referrals: Yousuf Harrison MD [Primary Care Provider] -
[2017-07-09 10:21] LABS: ABG Base Excess 4 mEq/L (-2 to 3); ABG HCO3 29 mEq/L (21-27); ABG Oxygen Saturation 100 % (95-98); ABG PCO2 43 mmHg (35-45); ABG PH 7.44 pH Units (7.32-7.45); ABG PO2 378 mmHg (85-104); ABG TCO2 30 mEq/L (20-26)
--- NOTE | 2017-07-09 11:23 | Event Note ---
Date of Encounter: 07/09/17 Time of Encounter: 11:21 head c T resulted with a small hemorrhagic component Patient's INR is 1.2 , enoxaparin and warfarin discontinued Phone call made to [facility] for transfer ARMANDO Oatient needs at least a neuro-ICU and or neurosurgery eval he is Pentecostal and will not receive any form of blood products Family at the bedside eductaed extensively Vit K 10mg will be given
[2017-07-09 14:01] VITALS: BP 152/73
--- NOTE | 2017-07-09 14:25 | Discharge Summary ---
Orders not resulted at time of discharge: Pending orders 07/10/17 04:00 PT/INR [Prothrombin Time INR] [COAG] AM 0400 07/11/17 04:00 PT/INR [Prothrombin Time INR] [COAG] AM 0400 07/12/17 04:00 PT/INR [Prothrombin Time INR] [COAG] AM 0400 07/13/17 04:00 PT/INR [Prothrombin Time INR] [COAG] AM 0400 Date of Encounter: 07/09/17 Time of Encounter: 14:17 - Discharge Diagnosis (1) Acute CVA (cerebrovascular accident) Priority: Primary Status: Acute (2) Acute exacerbation of CHF (congestive heart failure) Priority: Primary Status: Acute Qualifiers: Heart failure type: diastolic Qualified Code(s): I50.33 - Acute on chronic diastolic (congestive) heart failure (3) Acute renal failure Priority: Primary Status: Resolved Qualifiers: Acute renal failure type: unspecified Qualified Code(s): N17.9 - Acute kidney failure, unspecified (4) CAD (coronary artery disease) Priority: Secondary Status: Chronic Qualifiers: Coronary Disease-Associated Artery/Lesion type: [place] artery [place] vs. transplanted heart: [place] heart Associated angina: with other forms of angina Qualified Code(s): I25.118 - Atherosclerotic heart disease of [place] coronary artery with other forms of angina pectoris (5) DVT (deep venous thrombosis) Priority: Primary Status: Acute Qualifiers: DVT location: lower extremity Affected thrombotic vein of extremity: unspecified vein of extremity Chronicity: unspecified Laterality: unspecified laterality Qualified Code(s): I82.409 - Acute embolism and thrombosis of unspecified deep veins of unspecified lower extremity (6) Diabetes mellitus Priority: Secondary Status: Chronic Qualifiers: Diabetes mellitus type: type 2 Diabetes mellitus complication status: without complication Diabetes mellitus prison insulin use: without prison use Qualified Code(s): E11.9 - Type 2 diabetes mellitus without complications (7) HLD (hyperlipidemia) Priority: Secondary Status: Chronic Qualifiers: Hyperlipidemia type: unspecified Qualified Code(s): E78.5 - Hyperlipidemia , unspecified (8) HTN (hypertension) Priority: Secondary Status: Chronic Qualifiers: Hypertension type: essential hypertension Qualified Code(s): I10 - Essential (primary) hypertension Hospital course: Mr. Borges is a 56 year old male Patient was admitted and being managed for acute kidney injury, acute CHF exacerbation, acute ischemic CVA, coronary artery disease with abnormal stress test , triple vessel CAD He has a PMH of Uncontrolled HTN, DM with A1C 8.8, HLD, Obesity, CHF (TTE 2016 showed EF 60%. moderate diastolic dysfunction. Mild to moderate MS) He also has an acute DVT and is on anticoagulationThe patient's christianity precludes him from going blood transfusion or any blood products, hence his management of his coronary artery disease which requires CABG which has been difficult. Patient has been recommended to go to [facility] where he can get a CABG in the near future He continued to receive enoxaparin at therapeutic dosing, insulin for glucose control, high dose STATin and ASA for CVA, lasix for diuresis for CHF exacerbation ON 07/09/17, Attention drawn to the bedside by his who met me on the white way and stated her was unresponsive Upon entering the room, the patient was sitting up in the chair, responsive to sternal rub only, the nurses and I put him on the bed. He had recently been started on insulin for blood glucose control, and his blood pressure had been uncontrolled Overnight, the RN noted worsening RLE weakness and speech and the night MD had ordered a repeat Head CT On exam, patient is drowsy but rousable ot sternal rub, bradycardic, HR in the 90s and hypoxic to 89% on room air, Blood pressure was 125/64, FS was 155. Patient had chunks of ufood in his mouth and phraynx which were sunctioned and manually removed by the RN His speech is worse compared to my evaluation yesterday 07/08. His chest is clear to auscultation anteriorly HS S1, S2 bradycardic Abdomen is soft and obese, not tender, he has 1+ piting pedal edema bilaterally Skin is clammy and diaphoretic He was placed on non-rebreather mask and O2 improved to 100% rapidly, patient also received atropine 0.25mg stat anfd HR remained stable between 49-60. Blood pressure has been stable STAT CXR reviewed by me pending repot shows RLL infitrates, suspect aspiration Repeat Head CT showed Interval development of a small hemorrhagic component of the subacute stroke involving the left internal capsule and simms radiata. Patient was given Vitamin K 10mg STAT and phone call made to [place] for transfer to neurointensive monitoring and or neurosurgery eval I spoke with [facility] [phone], who stated the stroke physician Dr. Lopez and [facility] Nurse believes the patient should be transported to their ER. Patient's family at the bedside was educated extensively about the new development and plan of care. Discharge discussed with: patient, family, nurse, social work, case management, lifestyle consultant - Time Spent with Patient Total time spent providing and/or coordinating discharge services: Greater than 30 minutes - Discharge Medications Home Medications: Amlodipine Besylate 10 mg PO DAILY 01/23/17 [History] Carvedilol [Coreg] 25 mg PO BID 01/23/17 [History] Glimepiride [Amaryl] 2 mg PO 0800 01/23/17 [History] Metformin HCl [Glucophage] 1,000 mg PO BID 01/23/17 [History] Omeprazole [PriLOSEC] 20 mg PO DAILY 01/23/17 [History] Simvastatin [Zocor] 40 mg PO HS 01/23/17 [History] cloNIDine HCl [Clonidine HCl] 0.2 mg PO TID 01/23/17 [History] Albuterol Sulfate [Ventolin Hfa] 2 puff IH Q4H PRN 06/30/17 [History] Empagliflozin [Jardiance] 25 mg PO DAILY 06/30/17 [History] Allergies/Adverse Reactions: 3 Allergy/AdvReac Type Severity Reaction Status Date / Time No Known Allergies Allergy Verified 06/30/17 14:06 Date of admission: 06/30/17 23:42 Primary care physician: Yousuf Harrison Consults: 07/01/17 10:12 Consult to Cardiology [CONS] Routine Comment: Consulting Provider: Cardiology [facility] Reason for Consult: CAD, SUbnormal stress test, Diabetic and mild Trop elevation. [facility] eval Time Notified: 10:12 Call Completed: Yes 07/01/17 13:00 Consult to Nurse Navigator [CONS] Routine Comment: 07/02/17 08:54 Consult to Occupational Therapy [CONS] Routine Comment: Evaluate, develop and implement POC Reason for Consult: therapy/placement needs Consult to Physical Therapy [CONS] Routine Comment: Evaluate, develop and implement POC Reason for Consult: PT eval 07/03/17 11:15 Consult to Cardiothoracic Surgery [CONS] Routine Consulting Provider: Cardiothoracic Surgery [place] Reason for Consult: CABG evaluation. Call Completed: Yes 07/04/17 12:59 Consult to Neurology [CONS] Routine Consulting Provider: [facility] Reason for Consult: acute stroke Call Completed: No 07/06/17 12:46 Consult to Occupational Therapy [CONS] Routine Comment: Evaluate, develop and implement POC Reason for Consult: therapy/placement needs Consult to Physical Therapy [CONS] Routine Comment: Evaluate, develop and implement POC Reason for Consult: PT eval 07/07/17 15:20 Consult to Warehouse Assembly Worker [CONS] Routine Reason for SW Consult: Per nursing PT recommending inpatient swing bed and patient agreeable 07/07/17 15:32 Consult to Speech Therapy [CONS] Routine Comment: Evaluate, develop and implement POC Reason for Consult: Post stroke Call Completed: No 07/09/17 10:00 Consult to Speech Therapy [CONS] Routine Comment: Evaluate, develop and implement POC Reason for Consult: Post-CVA, unable to swallow Call Completed: No 07/09/17 10:12 Consult to Neurology [CONS] Routine Consulting Provider: [facility] Reason for Consult: CVA,worsening paresis, dysarthria Call Completed: Yes Discharging clinician: Nilesh Kelsey Anticipated date of discharge: 07/09/17 - Constitutional Vitals: Temp Pulse Resp BP Pulse Ox 98.1 F 54 20 152/73 97 07/09/17 13:59 07/09/17 13:59 07/09/17 13:59 07/09/17 13:59 07/09/17 11:52 as in HPI/Hospital course General appearance: Present: A&O X 2, mild distress, obese. Absent: answers questions appropriately - Head Head exam: Present: atraumatic, normocephalic - Eye Eye exam: Present: PERRL, conjuntiva pink, sclera anicteric Pupils: Present: PERRL - Neck Neck exam general surgery: Present: supple, trachea midline. Absent: lymphadenopathy - Respiratory Respiratory exam: Present: CTAB. Absent: accessory muscle use, rales, rhonchi, wheezes - Cardiovascular Cardiovascular exam: Present: bradycardia, +S1, +S2. Absent: diastolic murmur, gallop, rubs, systolic murmur - GI/Abdominal GI/Abdominal exam: Present: normal bowel sounds, soft, no peritoneal signs. Absent: distended, tenderness - Extremities Exam Extremities exam: Present: pedal edema - Neurological Exam Neurological exam: Present: altered, motor sensory deficit, facial droop, speech deficit - Skin Skin exam: Present: dry - Patient Status Disposition: Transfer Critical Access Hosp Condition: Serious Functional capacity at discharge: bed bound Overall status at discharge: patient is not back to baseline - Discharge Instructions Instructions: Heart Failure (DC), Acute Kidney Injury (DC), Diabetes Mellitus Type 2 in Adults (DC), Ischemic Stroke (DC), Ischemic Stroke (GEN), Chronic Hypertension (DC), Ischemic Stroke, [place] Tender (GEN) Follow Up With: Yousuf Harrison MD [Primary Care Provider] - - Diet and Activity Activity: wear oxygen at all times Diet: diabetic diet, low fat, low cholesterol, low salt diet - Stroke Contraindication Rehab Services Not Assessed: Refused by Patient / Family
== END 2017-07-09 14:30 | disposition critical access hospital (66) | DRG 192 ==
LOC: 2NENU 14:01 → EMEROO 14:01 → 2NENU 17:30 → SUATTDRO 23:42
PROVIDERS: ADMIT Internal Medicine; ATTEND Internal Medicine